=== PATIENT | male | born 1930 | race Hispanic/Latino ===

== ENCOUNTER 2016-08-09 14:51 | Emergency (ER) | payer MEDICARE ==
[~2016-08-09] VITALS: Ht 180.3 cm; Wt 81.6 kg
[2016-08-09] MEDS ORDERED: LEVO10VL IM (15:22)
[2016-08-09] MEDS ORDERED: SINE25TA6 PO (15:22)
[2016-08-09] MEDS ORDERED: METO-209 PO (15:22)
[2016-08-09] MEDS ORDERED: PROBCAP18 PO (15:22)
[2016-08-09] MEDS ORDERED: OMEG12002 PO (15:22)
[2016-08-09] MEDS ORDERED: NAPR500T PO (15:22)
[2016-08-09] MEDS ORDERED: ALLO15TA GT (15:22)
[2016-08-09] MEDS ORDERED: ZANTTAB PO (15:22)
[2016-08-09] MEDS ORDERED: DOXA1TAB71 PO (15:22)
[2016-08-09] MEDS ORDERED: BISA10SU2 PR (15:22)
[2016-08-09] MEDS ORDERED: FLOM5CAP PO (15:22)
[2016-08-09] MEDS ORDERED: MIRA1.5T4 PO (15:22)
[2016-08-09] MEDS ORDERED: EYESOL4 OP (15:22)
[2016-08-09] MEDS ORDERED: LISINOPRIL 5 MG TAB PO ONE (17:00)
[2016-08-09] MEDS ORDERED: LISINOPRIL 10 MG TAB PO ONE (17:00)
[2016-08-09 17:30] LABS: BASO % 0.4 % (0.0-1.0); EOS # 0.2 K/mm3 (0.0-0.50); EOS % 3.1 % (0.0-3.0); LARGE UNSTAINED CELL # 0.1 K/mm3 (0.0-0.4); LARGE UNSTAINED CELL % 1.5 % (0.0-4.0); LYMPH # 1.6 K/mm3 (1.5-4.5); LYMPH % 23.8 % (24.0-44.0); MEAN CORPUSCULAR HEMOGLOBIN 31.8 pg (27.0-33.0); MEAN CORPUSCULAR HGB CONC 33.7 g/dl (32.0-36.5); MEAN CORPUSCULAR VOLUME 94.4 fl (80.0-96.0); MONO # 0.3 K/mm3 (0.0-0.8); MONO % 3.9 % (0.0-5.0); NEUTROPHILS # 4.6 K/mm3 (1.8-7.7); NEUTROPHILS % 67.3 % (36.0-66.0); PLATELET COUNT, AUTOMATED 130 k/mm3 (150-450); RED CELL DISTRIBUTION WIDTH 14.8 % (11.5-14.5); WHITE BLOOD COUNT 6.8 K/mm3 (4.0-10.0)
[2016-08-09] MEDS ORDERED: INDAPAMIDE 1.25MG TABLET PO ONE (18:00)
[2016-08-09 18:04] LABS: ANION GAP 6 MEQ/L (8-16); BLOOD UREA NITROGEN 23 MG/DL (7-18); CALCIUM LEVEL 8.5 MG/DL (8.8-10.2); CARBON DIOXIDE LEVEL 27 MEQ/L (21-32); CHLORIDE LEVEL 110 MEQ/L (98-107); GLUCOSE, FASTING 95 MG/DL (83-110); SODIUM LEVEL 143 MEQ/L (136-145)
[2016-08-09 21:02] VITALS: BP 172/80
--- NOTE | 2016-08-10 06:18 | ECGEPIP ---
Stationary ECG Study [facility] - ED Test Date: 2016-08-09 Pat Name: DANETTE HANNAH Department: Room: - Gender: M Cardiovascular Invasive Specialist: ed : 1930 Requested By: Juan J Acevedo Order Number: [id number] Reading MD: Juan J Ng Measurements Intervals Swiss Rate: 59 P: 49 CO: 164 QRS: 30 QRSD: 84 T: 34 QT: 400 QTc: 397 Interpretive Statements SINUS BRADYCARDIA Electronically Signed On 08-10-2016 6:18:12 EDT by Juan J Ng
--- NOTE | 2016-08-10 07:10 | REP ---
CHEST, ONE VIEW: HISTORY: Chest pain. COMPARISON: 02/28/2015. The lungs are clear. The heart is normal in size. The pulmonary vasculature is normal in appearance. IMPRESSION: No acute disease. Signed by Zach Hansen MD 08/10/2016 08:26 A
== END 2016-08-09 21:04 | disposition home or self-care (01) ==
LOC: M ED 16:34
DX: I10 Essential (primary) hypertension (principal); R42 Dizziness and giddiness; G20 Parkinson's disease; E07.9 Disorder of thyroid, unspecified; Z79.899 Other long term (current) drug therapy; Z88.8 Allergy status to other drugs, medicaments and biological substances

== ENCOUNTER 2017-08-12 12:07 | Inpatient (IN) | payer MEDICARE ==
[2017-08-12 14:52] LABS: BASO % 0.1 % (0.0-1.0); EOS % 0.1 % (0.0-3.0); HEMATOCRIT 47.7 % (42.0-52.0); HEMOGLOBIN 15.9 g/dl (13.5-17.5); IMMATURE GRANULOCYTE % 0.8 % (0-3.0); LYMPH # 1.3 10^3/uL (1.5-4.5); LYMPH % 9.1 % (24.0-44.0); MEAN CORPUSCULAR HEMOGLOBIN 30.7 pg (27.0-33.0); MEAN CORPUSCULAR HGB CONC 33.3 g/dl (32.0-36.5); MEAN CORPUSCULAR VOLUME 92.1 fl (80.0-96.0); MONO % 6.8 % (0.0-5.0); NEUTROPHILS # 11.8 10^3/uL (1.8-7.7); NEUTROPHILS % 83.1 % (36.0-66.0); PLATELET COUNT, AUTOMATED 143 10^3/uL (150-450); RED BLOOD COUNT 5.18 10^6/uL (4.30-6.10); RED CELL DISTRIBUTION WIDTH 14.5 % (11.5-14.5); WHITE BLOOD COUNT 14.2 10^3/uL (4.0-10.0)
[2017-08-12 15:04] LABS: PROTHROMBIN TIME 14.4 SECONDS (12.4-14.5)
[2017-08-12] MEDS: ONDANSETRON 4MG/2ML VIAL (J2405) IV (15:08)
[2017-08-12] MEDS: NS 1,000 ML IV ×3 (15:08→23:56)
[2017-08-12] MEDS: PANTOPRAZOLE 40MG INJ (PROTONIX) (C9113) IV (15:08)
[2017-08-12 15:14] LABS: ALBUMIN 3.1 GM/DL (3.2-5.2); ALBUMIN/GLOBULIN RATIO 0.67 (1.00-1.93); ALKALINE PHOSPHATASE 113 U/L (45-117); ALT/SGPT 26 U/L (12-78); ANION GAP 6 MEQ/L (8-16); AST/SGOT 28 U/L (7-37); BILIRUBIN,DIRECT 0.4 MG/DL (0.0-0.2); BILIRUBIN,TOTAL 1.5 MG/DL (0.2-1.0); BLOOD UREA NITROGEN 36 MG/DL (7-18); CALCIUM LEVEL 9.1 MG/DL (8.8-10.2); CARBON DIOXIDE LEVEL 29 MEQ/L (21-32); CHLORIDE LEVEL 104 MEQ/L (98-107); CREATININE FOR GFR 1.78 MG/DL (0.70-1.30); GLOMERULAR FILTRATION RATE 38.8 (>35); GLUCOSE, FASTING 112 MG/DL (70-100); LIPASE 192 U/L (73-393); POTASSIUM SERUM 4.4 MEQ/L (3.5-5.1); SODIUM LEVEL 139 MEQ/L (136-145); TOTAL PROTEIN 7.7 GM/DL (6.4-8.2)
[2017-08-12] MEDS: cefTRIAXone SOD 1 GM in D5W MINI-BAG PLUS 50 ML IV (16:40)
[2017-08-12] MEDS ORDERED: MORPHINE 4 MG/ML 1ML VIAL/SYRINGE (J2270) IV (17:15)
[2017-08-12] MEDS ORDERED: ONDANSETRON 4MG/2ML VIAL (J2405) IV (17:15)
[2017-08-12 17:53] LABS: LACTIC ACID SEPSIS PROTOCOL 1.9 MMOL/L (0.4-2.0)
[2017-08-12] MEDS: AZITHROMYCIN INJ 500 MG, VIAL MATE ADAPTER 1 EACH in D5W 250 ML IV (18:00)
[2017-08-12] MEDS ORDERED: PIPERACILLIN/TAZOBACTAM SOD 2.25 GM in D5W MINI-BAG PLUS 50 ML IV (18:00)
[2017-08-12 18:26] LABS: CK-MB VALUE MASS 1.1 NG/ML (<3.6); CPK CREATINE PHOSPHOKINASE 58 U/L (39-308); FREE THYROXINE INDEX 2.7 % (1.4-3.8); MB/CK RELATIVE INDEX 1.89 (< OR =4); T UPTAKE 37 % (33-40); THYROXINE (T4) 7.4 UG/DL (4.5-12.0); TROPONIN I < 0.02 NG/ML (< 0.10)
[2017-08-12] MEDS: PIPERACILLIN/TAZOBACTAM SOD 2.25 GM in D5W MINI-BAG PLUS 50 ML IV (19:00)
[2017-08-12] MEDS: LACTOBACILLUS ACIDOPHILUS CAP (BACID) PO (21:07)
[2017-08-12] MEDS: SENOKOT S TAB PO (21:08)
[2017-08-12] MEDS: MIRALAX *UNIT DOSE* 17GM PACKET PO (21:08)
[2017-08-12] MEDS: HEPARIN SOD (PORCINE) 5000 UNITS/ML VIAL SC (21:08)
[2017-08-12] MEDS: FAMOTIDINE 20 MG TAB PO (21:08)
[2017-08-12] MEDS: METOPROLOL SUCC (TopROL XL) 100MG *XL* TAB PO (21:46)
[2017-08-12 22:59] LABS: KETONE, URINE AUTO RFX NEGATIVE (NEGATIVE); LEUKOCYTE ESTERASE UR AUTO RFX NEGATIVE (NEGATIVE); NITRITE, URINE AUTO RFX NEGATIVE (NEGATIVE); RBC, URINE AUTO RFX 4 /HPF (0-3); SPECIFIC GRAVITY UR AUTO RFX 1.019 (1.002-1.035); SQUAM EPITHELIAL CELL UR AURFX 0 /HPF (0-6); WBC, URINE AUTO RFX 2 /HPF (0-3)
[2017-08-12 23:36] LABS: CHLORIDE,RANDOM URINE 44 MEQ/L; POTASSIUM RANDOM URINE 53.5 MEQ/L; SODIUM,RANDOM URINE 50 MEQ/L; TOTAL PROTEIN,RANDOM URINE 117.2 MG/DL (0.0-12.0)
[2017-08-13 00:33] LABS: OSMOLALITY URINE 649 MOSM/KG (500-800)
[2017-08-13] MEDS: PIPERACILLIN/TAZOBACTAM SOD 2.25 GM in D5W MINI-BAG PLUS 50 ML IV (03:58)
[2017-08-13 05:25] LABS: HEMATOCRIT 41.3 % (42.0-52.0); MEAN CORPUSCULAR HEMOGLOBIN 30.7 pg (27.0-33.0); MEAN CORPUSCULAR HGB CONC 33.4 g/dl (32.0-36.5); MEAN CORPUSCULAR VOLUME 91.8 fl (80.0-96.0); PLATELET COUNT, AUTOMATED 118 10^3/uL (150-450); RED CELL DISTRIBUTION WIDTH 14.6 % (11.5-14.5); WHITE BLOOD COUNT 10.3 10^3/uL (4.0-10.0)
[2017-08-13 05:32] LABS: HEMOGLOBIN 13.8 g/dl (13.5-17.5)
[2017-08-13 05:43] LABS: ALBUMIN 2.4 GM/DL (3.2-5.2); ALBUMIN/GLOBULIN RATIO 0.65 (1.00-1.93); ALKALINE PHOSPHATASE 102 U/L (45-117); ALT/SGPT 24 U/L (12-78); ANION GAP 8 MEQ/L (8-16); AST/SGOT 25 U/L (7-37); BILIRUBIN,TOTAL 1.1 MG/DL (0.2-1.0); BLOOD UREA NITROGEN 34 MG/DL (7-18); CALCIUM LEVEL 8.2 MG/DL (8.8-10.2); CARBON DIOXIDE LEVEL 23 MEQ/L (21-32); CHLORIDE LEVEL 109 MEQ/L (98-107); CK-MB VALUE MASS 1.1 NG/ML (<3.6); CPK CREATINE PHOSPHOKINASE 35 U/L (39-308); GLOMERULAR FILTRATION RATE 47.2 (>35); GLUCOSE, FASTING 109 MG/DL (70-100); MAGNESIUM LEVEL 1.9 MG/DL (1.8-2.4); MB/CK RELATIVE INDEX 3.14 (< OR =4); SODIUM LEVEL 140 MEQ/L (136-145); TOTAL PROTEIN 6.1 GM/DL (6.4-8.2); TROPONIN I < 0.02 NG/ML (< 0.10)
[2017-08-13] MEDS: LEVOTHYROXINE 100MCG TABLET (0.1MG) PO (05:59)
[2017-08-13] MEDS: PANTOPRAZOLE 40MG INJ (PROTONIX) (C9113) IV (08:56)
[2017-08-13] MEDS: MIRALAX *UNIT DOSE* 17GM PACKET PO (08:56)
[2017-08-13] MEDS: LACTOBACILLUS ACIDOPHILUS CAP (BACID) PO (08:56)
[2017-08-13] MEDS: HEPARIN SOD (PORCINE) 5000 UNITS/ML VIAL SC (08:56)
[2017-08-13] MEDS: ALLOPURINOL 300 MG TAB PO (08:57)
[2017-08-13] MEDS: DOXAZOSIN MESYLATE 1 MG TAB PO (08:57)
[2017-08-13] MEDS: TAMSULOSIN 0.4 MG CAP PO (08:57)
[2017-08-13] MEDS: MULTIVITAMINS/MINERALS THERAP 1 TAB PO (08:57)
[2017-08-13] MEDS: SENOKOT S TAB PO (08:57)
[2017-08-13] MEDS ORDERED: SLF 3 ML SYR IV ×2 (11:00→14:00)
[2017-08-13] MEDS ORDERED: BISACODYL 10 MG SUPP PR (13:00)
== END 2017-08-13 16:13 | disposition home or self-care (01) | DRG 392 ==
LOC: M ED 12:07 → M ED INP 17:04 → M PCU 18:38
DX: A08.4 Viral intestinal infection, unspecified (principal); E46 Unspecified protein-calorie malnutrition; K80.00 Calculus of gallbladder with acute cholecystitis without obstruction; J98.11 Atelectasis; K52.9 Noninfective gastroenteritis and colitis, unspecified; K59.00 Constipation, unspecified; I12.9 Hypertensive chronic kidney disease with stage 1 through stage 4 chronic kidney disease, or unspecified chronic kidney disease; G20 Parkinson's disease; E03.9 Hypothyroidism, unspecified; D72.829 Elevated white blood cell count, unspecified; E86.0 Dehydration; N18.9 Chronic kidney disease, unspecified; N40.0 Benign prostatic hyperplasia without lower urinary tract symptoms; Z79.899 Other long term (current) drug therapy

== ENCOUNTER 2020-03-30 12:16 | Inpatient (IN) | payer MEDICARE ==
[~2020-03-30] VITALS: Ht 177.8 cm; Wt 82.2 kg
[2020-03-30] MEDS: METOPROLOL SUCC (TopROL XL) 100MG *XL* TAB PO SCH (09:00)
[~2020-03-30 12:16] MED LIST: ALLO300T2 PO; BISA10SU20 PR; DOXA2TAB3 PO; DULC5TAB PO; EYESOL4 OP; FLOM0.4C39 PO; LASI20TA3 PO; LEVO100T54 PO; LEVO10VL IM; LISI-542 PO; METO1TAB33 PO; MIRA1.5T PO; MIRA3350 PO; MIRA33504 PO; NAPR-837 PO; OMEG12002 PO; PROBCAP18 PO; SENN1TAB10 PO; SINE25TA6 PO; VITMTA PO; ZANT150T40 PO; ZYLO300T6 PO
--- NOTE | 2020-03-30 13:15 | REP ---
INDICATION: pain Nontraumatic hip pain. COMPARISON: None. TECHNIQUE: Frontal view of the pelvis with neutral and frog lateral views of the right hip. FINDINGS: Age-related osteopenia and generalized degenerative changes are appreciated. No evidence for acute fracture or dislocation. IMPRESSION: Osteopenia and age-related degenerative changes. No obvious acute fracture or dislocation. <Electronically signed by Dev Carlos > 03/30/20 [id number]
--- NOTE | 2020-03-30 13:40 | REP ---
INDICATION: pain. COMPARISON: None. TECHNIQUE: Axial noncontrast images through the right hip with coronal and sagittal reformations. FINDINGS: Extensive osteopenia and moderate arthritic degenerative changes are appreciated. There is an acute nondisplaced fracture of the inferior pubic ramus with a somewhat central possibly blastic soft tissue component raising the possibility of pathologic fracture. Correlation with underlying history of malignancy may be warranted. No further acute fracture to the visualized osseous structures noted. Surrounding soft tissues and musculature appear relatively age-appropriate. No hematoma or soft tissue injury noted. IMPRESSION: 1. Nondisplaced fracture of the inferior pubic ramus having a somewhat central soft tissue component raising the possibility of pathologic fracture and correlation with underlying history of malignancy may be warranted. <Electronically signed by Dev Carlos > 03/30/20 [id number]
[2020-03-30] MEDS ORDERED: PERCOCET 5MG/325MG TAB PO ONE (14:15)
[2020-03-30] MEDS ORDERED: RA S8.6T3 PO (14:44)
[2020-03-30] MEDS ORDERED: PEPC1TAB5 PO (14:44)
[2020-03-30 15:00] LABS: HEMATOCRIT 45.3 % (42.0-52.0); HEMOGLOBIN 15.1 g/dl (13.5-17.5); MEAN CORPUSCULAR HEMOGLOBIN 31.1 pg (27.0-33.0); MEAN CORPUSCULAR HGB CONC 33.3 g/dl (32.0-36.5); MEAN CORPUSCULAR VOLUME 93.4 fl (80.0-96.0); PLATELET COUNT, AUTOMATED 179 10^3/uL (150-450); RED BLOOD COUNT 4.85 10^6/uL (4.30-6.10); WHITE BLOOD COUNT 8.5 10^3/uL (4.0-10.0)
[2020-03-30 15:22] LABS: ALBUMIN 3.9 GM/DL (3.2-5.2); BILIRUBIN,TOTAL 0.8 MG/DL (0.2-1.0); CALCIUM LEVEL 9.9 MG/DL (8.8-10.2); CREATININE FOR GFR 1.9 MG/DL (0.70-1.30); GLOMERULAR FILTRATION RATE 35.7 (>35); POTASSIUM SERUM 4.7 MEQ/L (3.5-5.1); TOTAL PROTEIN 7.3 GM/DL (6.4-8.2)
--- NOTE | 2020-03-30 16:53 | REP ---
INDICATION: BRITTNY COMPARISON: None TECHNIQUE: Real time correa scale ultrasound examination using curved array transducer. FINDINGS: Kidneys demonstrate cortical thinning with increased central sinus fat and increased parenchymal echotexture suggesting chronic age-related renal disease. No hydronephrosis. Right kidney measures 8.7 x 4.0 x 4.4 cm. Left kidney measures 9.5 x 4.7 x 4.6 cm and includes 2.1 cm midpole cyst. Bladder is unremarkable. Incidental cholelithiasis. IMPRESSION: Evidence for chronic medical renal disease. 2.1 cm simple left renal cyst. Cholelithiasis noted. <Electronically signed by Dev Carlos > 03/30/20 [id number]
--- NOTE | 2020-03-30 17:12 | HPEPDOC ---
General Date of Admission Mar 30, 2020 at 15:31 Date of Service: Mar 30, 2020 Attending Physician: DEMETRIS ROGERS DO Chief Complaint The patient is a 89-year-old male admitted with a reason for visit of Closed Fracture Of Inferior Pubic Ramus,Inadequate. Source: Patient History of Present Illness Mr. García is a 89 year old male with gout, hypothyroidism, and CKD who is here for right hip pain and found to have a nondisplaced fracture of the infer ior pubic ramus. About 3 days ago, he started to have right pelvis pain. He is unsure what caused the pain. Denies trauma or falls. Pain was worse with activity, better with rest. he took Tylenol, but it did not help. he used two canes to help himself ambulate because he does not like the walker. Pain was not improving and he came to the ED. Imaging demonstrated a nondisplaced fracture of the inferior pubic ramus and requested admission for pain control and physical therapy. The last time he had a fracture was a few years ago when he fell and fractured his right 5 digit finger. Otherwise, he is not up-to-date on cancer screenings. He does not want a colonoscopy because he had a family member who had a perforation from a colonoscopy. He has never smoked before. I spoke to him about cancer screening such as PSA and fecal occult, but he had declined. We spoke about DNR/DNI status and I brought the MOLST form, but he did not want to fill it out. He says that due to philosophical and yarsani beliefs, he wants to continue fighting to the very end. He agrees to full code at this time. Otherwise, denies history of cancer in family or in himself. Pain is only there when he tries to walk. Denies fever, chest pain, dyspnea, cough, abdominal pain, or dysuria. He does have constipation. Home Medications Scheduled Allopurinol (Zyloprim) 300 Mg Tab, 300 MG PO DAILY, (Reported) Doxazosin Mesylate (Doxazosin) 2 Mg Tab, 2 MG PO DAILY, (Reported) Famotidine (Pepcid) 20 Mg Tablet, 20 MG PO BID, (Reported) Levothyroxine Sodium (Levoxyl) 100 Mcg Tab, 100 MCG PO DAILY, (Reported) Lisinopril (Lisinopril) 5 Mg Tab, 5 MG PO DAILY, (Reported) Metoprolol Succinate (Metoprolol Succinate) 100 Mg Tab, 100 MG PO DAILY, (Reported) Multivitamins (Thera M Plus Tablet) 1 Tab Tab, 1 TAB PO DAILY, (Reported) Sennosides (Senna Lax) 8.6 Mg Tablet, 8.6 MG PO QHS, (Reported) Tamsulosin HCl (Flomax) 0.4 Mg Cap, 0.4 MG PO QHS, (Reported) Scheduled PRN Furosemide (Lasix) 20 Mg Tab, 20 MG PO DAILY PRN for EDEMA, (Reported) Polyethylene Glycol 3350 (Miralax) 1 Pow Pow, 17 GM PO DAILY PRN for CONSTIPATION, (Reported) Allergies Coded Allergies: amlodipine (Verified Adverse Reaction, Mild, DIZZY, 03/30/20) Past Medical History Medical History 1. Hypertension 2. Parkinsonism 3. Hypothyroidism 4. CKD 5. BPH Surgical History 1. Appendectomy 2. Circumcision Family History Father: at 55 from cardiac causes Mother: at 77 from cardiac causes Social History * Smoker: Denies Alcohol: Denies Drugs: denies A-FIB/CHADSVASC A-FIB History Current/History of A-Fib/PAF?: No Review of Systems Constitutional: Denies: Chills, Fever Eyes: Denies: Vision change ENT: Denies: Sore Throat Skin: Denies: Rash Pulmonary: Denies: Dyspnea, Cough Cardiovascular: Denies: Chest Pain Gastrointestinal: Reports: Constipation; Denies: Abdominal Pain Genitourinary: Denies: Dysuria Hematologic: Denies: Bruising Musculoskeletal: Reports: Joint Pain (Located in right hip) Physical Examination General Exam: Positive: Alert, Cooperative, No Acute Distress Eye Exam: Positive: EOMI; Negative: Sclera icteric ENT Exam: Positive: Atraumatic, Tongue Midline Neck Exam: Positive: Supple Chest Exam: Positive: Clear to auscultation; Negative: Rales, Rhonchi, Wheezing Heart Exam: Positive: Rate Normal, Regular Rhythm Abdomen Exam: Positive: Normal bowel sounds, Soft; Negative: Tenderness Extremity Exam: Negative: Edema Neuro Exam: Positive: Normal Speech, Cranial Nerves 3-12 NL Psych Exam: Positive: Mental status NL, Mood NL Vital Signs Vital Signs Date Time Temp Pulse Resp B/P (MAP) Pulse Ox O2 Delivery O2 Flow Rate FiO2 03/30/20 16:04 57 97 03/30/20 16:03 137/73 (94) 03/30/20 14:48 16 Room Air 03/30/20 12:25 97.6 Laboratory Data Labs 24H Laboratory Tests 2 03/30/20 14:45: Nucleated Red Blood Cells % (auto) 0.0, Anion Gap 6L, Glomerular Filtration Rate 35.7, Calcium Level 9.9, Total Bilirubin 0.8, Aspartate Amino Transf (AST/SGOT) 14, Alanine Aminotransferase (ALT/SGPT) 21, Alkaline Phosphatase 130H, Total Protein 7.3, Albumin 3.9, Albumin/Globulin Ratio 1.1, Coronavirus (COVID- 19)(PCR) NEGATIVE CBC/BMP Laboratory Tests 03/30/20 14:45 Assessment/Plan Mr. García is a 89 year old male with gout, hypothyroidism, and CKD who is here for right hip pain and found to have a nondisplaced fracture of the inferior pubic ramus. He has declined cancer screening, but he is okay for a bone scan. Otherwise, we will work on pain control with scheduled Tylenol and PRN Ultram. He does have some BRITTNY. Will hold lasix and give fluids Plan / VTE VTE Prophylaxis Ordered?: Yes Plan Plan 1. Right inferior pubic ramus fracture -Unknown etiology, possible malignancy -Patient noncompliant with cancer screenings, declines cancer screening -Ok for bone scan -Pain control with scheduled Tylenol and PRN Ultram -Physical therapy for ambulation 2. BRITTNY on CKD -Baseline creatinine around 1.7 -On admission creatinine 1.9 -IVF with LR, hold Lasix 3. Gout -No acute flares at this time -Continue Allopurinol 4. Hypertension -BP controlled -Continue with Toprol XL and Lisinopril 5. BPH -Continue Tamsulosin 6. Constipation -Continue Senna and PRN Miralax 7. GERD -Continue Famotidine 8. Hypothyroidism -Continue levothyroxine 9. DVT ppx -Heparin subq DEMETRIS ROGERS DO Mar 30, 2020 17:12
[2020-03-30 18:30] VITALS: BP 146/69
[2020-03-30] MEDS: LR 1,000 ML IV SCH (18:40)
[2020-03-30] MEDS: ACETAMINOPHEN 500 MG TAB PO SCH ×2 (18:41→21:34)
[2020-03-30] MEDS: lisinopriL 5 MG TAB PO SCH (18:41)
[2020-03-30] MEDS: allopurinoL 300 MG TAB PO SCH (18:42)
[2020-03-30 20:00] VITALS: BP 121/64
[2020-03-30] MEDS: SENNA 8.6 MG TAB (SENOKOT) PO SCH (21:33)
[2020-03-30] MEDS: FAMOTIDINE 20 MG TAB PO SCH (21:33)
[2020-03-30] MEDS: TAMSULOSIN 0.4 MG CAP PO SCH (21:33)
[2020-03-30] MEDS: HEPARIN SOD (PORCINE) 5000UNITS/ML 1ML VIAL/SYRINGE SC SCH (21:35)
[2020-03-30 22:11] LABS: APPEARANCE, URINE CLEAR (CLEAR); BACTERIA, URINE AUTO NEGATIVE (NEGATIVE); BILIRUBIN, URINE AUTO NEGATIVE (NEGATIVE); BLOOD, URINE BLOOD NEGATIVE (NEGATIVE); COLOR, URINE YELLOW (YELLOW); GLUCOSE, URINE (UA) AUTO NEGATIVE (NEGATIVE); KETONE, URINE AUTO NEGATIVE (NEGATIVE); LEUKOCYTE ESTERASE, URINE AUTO NEGATIVE (NEGATIVE); MUCUS, URINE SMALL (NEGATIVE); NITRITE, URINE AUTO NEGATIVE (NEGATIVE); PROTEIN, URINE AUTO NEGATIVE (NEGATIVE); RBC, URINE AUTO 1 /HPF (0-3); SPECIFIC GRAVITY URINE AUTO 1.026 (1.002-1.035); SQUAMOUS EPITHELIAL CELL UR AU 0 /HPF (0-6); UROBILINOGEN, URINE AUTO 0.2 mg/dL (0.0-2.0); WBC, URINE AUTO 1 /HPF (0-3)
[2020-03-31] MEDS: LR 1,000 ML IV SCH ×2 (04:51→16:46)
[2020-03-31 05:54] VITALS: BP 118/82
[2020-03-31] MEDS: LEVOTHYROXINE 100MCG TABLET (0.1MG) PO SCH (05:58)
[2020-03-31] MEDS: traMADol 50 MG TAB PO PRN ×2 (05:59→15:52)
[2020-03-31] MEDS: allopurinoL 300 MG TAB PO SCH (08:03)
[2020-03-31] MEDS: FAMOTIDINE 20 MG TAB PO SCH ×2 (08:03→21:18)
[2020-03-31] MEDS: ACETAMINOPHEN 500 MG TAB PO SCH ×3 (08:03→21:18)
[2020-03-31] MEDS: lisinopriL 5 MG TAB PO SCH (08:03)
[2020-03-31] MEDS: METOPROLOL SUCC (TopROL XL) 100MG *XL* TAB PO SCH (08:03)
[2020-03-31] MEDS: MULTIVITAMINS/MINERALS THERAP 1 TAB PO SCH (08:03)
[2020-03-31] MEDS: HEPARIN SOD (PORCINE) 5000UNITS/ML 1ML VIAL/SYRINGE SC SCH ×2 (08:03→21:19)
[2020-03-31] MEDS ORDERED: OLANZapine INTRAMUSCULAR 10MG VIAL IM STA (08:31)
[2020-03-31] MEDS: OLANZapine 2.5MG TABLET PO SCH ×2 (09:00→21:20)
[2020-03-31 09:03] LABS: HEMATOCRIT 44.6 % (42.0-52.0); HEMOGLOBIN 14.9 g/dl (13.5-17.5); MEAN CORPUSCULAR HEMOGLOBIN 31.1 pg (27.0-33.0); MEAN CORPUSCULAR HGB CONC 33.4 g/dl (32.0-36.5); MEAN CORPUSCULAR VOLUME 93.1 fl (80.0-96.0); PLATELET COUNT, AUTOMATED 190 10^3/uL (150-450); RED BLOOD COUNT 4.79 10^6/uL (4.30-6.10); WHITE BLOOD COUNT 8.3 10^3/uL (4.0-10.0)
[2020-03-31 09:50] LABS: CALCIUM LEVEL 9.7 MG/DL (8.8-10.2); CREATININE FOR GFR 2.19 MG/DL (0.70-1.30); GLOMERULAR FILTRATION RATE 30.3 (>35); POTASSIUM SERUM 4.4 MEQ/L (3.5-5.1)
[2020-03-31 14:00] VITALS: BP 102/49
--- NOTE | 2020-03-31 14:25 | IPNPDOC ---
Subjective Date Seen The patient was seen on 03/31/20. Subjective Chief Complaint/HPI Mr. García is a 89 year old male with gout, hypothyroidism, and CKD who is here for right hip pain and found to have a nondisplaced fracture of the inferior pubic ramus. This morning, he was confused. He was asking who I was and why I came into his house. He wanted to take my number and he would call me. He was very agitated and refused physical exam or ROS. Physical therapy tried to see him, but he refused physical therapy as well. His child care coordinator arrived here and he has calmed down. Patient tend to be more awake at night and asleep in the day time. Objective Physical Examination Neuro Exam: Positive: Normal Speech Psych Exam: Positive: Anxiety; Negative: Mental status NL Other physical findings Physical exam refused today Assessment /Plan Assessment Mr. García is a 89 year old male with gout, hypothyroidism, and CKD who is here for right hip pain and found to have a nondisplaced fracture of the inferior pubic ramus. He has declined cancer screening, but he is okay for a bone scan. Otherwise, we will work on pain control with scheduled Tylenol and PRN Ultram. He does have some BRITTNY. Will hold lasix and give fluids. Otherwise, he does have Parkinson's and he may be sun downing as he is normally awake at night and asleep in the day time. License Clerk here to calm patient down. Will start patient on Olanzapine Plan/VTE VTE Prophylaxis Ordered?: Yes Plan 1. Right inferior pubic ramus fracture -Unknown etiology, possible malignancy -Patient noncompliant with cancer screenings, declines cancer screening -Ok for bone scan -Pain control with scheduled Tylenol and PRN Ultram -Physical therapy for ambulation 2. BRITTNY on CKD -Baseline creatinine around 1.7 -On admission creatinine 1.9 -IVF with LR, hold Lasix 3. Gout -No acute flares at this time -Continue Allopurinol 4. Hypertension -BP controlled -Continue with Toprol XL and Lisinopril 5. BPH -Continue Tamsulosin 6. Constipation -Continue Senna and PRN Miralax 7. GERD -Continue Famotidine 8. 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 DVT ppx -Heparin subq VS, I&O, 24H, [place] Vital Signs/I&O Vital Signs Date Time Temp Pulse Resp B/P (MAP) Pulse Ox O2 Delivery O2 Flow Rate FiO2 03/31/20 06:29 18 03/31/20 05:54 96.9 62 118/82 (94) 96 Room Air I&O- Last 24 Hours up to 6 AM 03/31/20 06:00 Intake Total 1500 ml Output Total 200 ml Balance 1300 ml Laboratory Data 24H LABS Laboratory Tests 2 03/30/20 14:45: Nucleated Red Blood Cells % (auto) 0.0, Anion Gap 6L, Glomerular Filtration Rate 35.7, Calcium Level 9.9, Total Bilirubin 0.8, Aspartate Amino Transf (AST/SGOT) 14, Alanine Aminotransferase (ALT/SGPT) 21, Alkaline Phosphatase 130H, Total Protein 7.3, Albumin 3.9, Albumin/Globulin Ratio 1.1, Coronavirus (COVID- 19)(PCR) NEGATIVE 03/30/20 21:53: Urine Color YELLOW, Urine Appearance CLEAR, Urine pH 5.0, Urine Specific [place] 1.026, Urine Protein NEGATIVE, Urine Glucose (Auto)(UA) NEGATIVE, Urine Ketones (Auto) NEGATIVE, Urine Blood NEGATIVE, Urine Nitrite NEGATIVE, Urine Bilirubin NEGATIVE, Urine Urobilinogen 0.2, Urine Leukocyte Esterase (Auto) NEGATIVE, Urine WBC (Auto) 1, Urine RBC (Auto) 1, Urine Hyaline Casts (Auto) 3, Urine Bacteria (Auto) NEGATIVE, Urine Squamous Epithelial Cells 0, Urine Mucus (Auto) SMALL, Urine Sperm (Auto) SMALLH 03/31/20 08:36: Nucleated Red Blood Cells % (auto) 0.0, Anion Gap 10, Glomerular Filtration Rate 30.3L, Calcium Level 9.7 CBC/BMP Laboratory Tests 03/30/20 14:45 03/31/20 08:36 DEMETRIS ROGERS DO Mar 31, 2020 14:25
[2020-03-31] MEDS: TAMSULOSIN 0.4 MG CAP PO SCH (21:18)
[2020-03-31] MEDS: SENNA 8.6 MG TAB (SENOKOT) PO SCH (21:18)
[2020-03-31 22:00] VITALS: BP 118/55
[2020-04-01] MEDS: LEVOTHYROXINE 100MCG TABLET (0.1MG) PO SCH (05:45)
[2020-04-01] MEDS: LR 1,000 ML IV SCH ×2 (05:45→15:28)
[2020-04-01 06:00] VITALS: BP 120/54
[2020-04-01 06:32] LABS: HEMATOCRIT 41.1 % (42.0-52.0); HEMOGLOBIN 13.3 g/dl (13.5-17.5); MEAN CORPUSCULAR HEMOGLOBIN 30.9 pg (27.0-33.0); MEAN CORPUSCULAR HGB CONC 32.4 g/dl (32.0-36.5); MEAN CORPUSCULAR VOLUME 95.4 fl (80.0-96.0); PLATELET COUNT, AUTOMATED 141 10^3/uL (150-450); RED BLOOD COUNT 4.31 10^6/uL (4.30-6.10)
[2020-04-01 06:49] LABS: CALCIUM LEVEL 9.3 MG/DL (8.8-10.2); CREATININE FOR GFR 2.53 MG/DL (0.70-1.30); GLOMERULAR FILTRATION RATE 25.7 (>35); POTASSIUM SERUM 4.1 MEQ/L (3.5-5.1)
[2020-04-01] MEDS: FAMOTIDINE 20 MG TAB PO SCH ×2 (08:30→20:59)
[2020-04-01] MEDS: MIRALAX *UNIT DOSE* 17GM PACKET PO PRN (08:30)
[2020-04-01] MEDS: MULTIVITAMINS/MINERALS THERAP 1 TAB PO SCH (08:30)
[2020-04-01] MEDS: allopurinoL 300 MG TAB PO SCH (08:30)
[2020-04-01] MEDS: ACETAMINOPHEN 500 MG TAB PO SCH ×3 (08:31→20:59)
[2020-04-01] MEDS: HEPARIN SOD (PORCINE) 5000UNITS/ML 1ML VIAL/SYRINGE SC SCH ×2 (08:31→20:58)
[2020-04-01] MEDS: OLANZapine 2.5MG TABLET PO SCH ×2 (08:31→20:58)
[2020-04-01] MEDS: METOPROLOL SUCC (TopROL XL) 100MG *XL* TAB PO SCH (08:37)
[2020-04-01 14:00] VITALS: BP 117/65
--- NOTE | 2020-04-01 14:53 | REP ---
INDICATION: Inferior pubic ramus fracture, possible mets/malignancy. COMPARISON: CT 03/30/2020. TECHNIQUE/RADIOTRACER AND DOSE: Following the intravenous administration of 22 mCi technetium 99 M MDP, patient's pelvic area is imaged in multiple projections, in the flow phase, immediate blood pool phase and 2.5 hour delayed phase post injection. FINDINGS: There is focal increased blood flow and blood pooling with a more tense focal uptake in the right inferior pubic ramus at the site of the fracture at that location. A similar focus of increased flow, pooling and delayed activity is seen in the right superior pubic ramus. No other discrete abnormal foci of uptake are seen in the visualized osseous structures of the pelvis. There is mild increased uptake at a disc level in the upper lumbar region compatible with mild degenerative disc change. IMPRESSION: At the site of the fracture of the right inferior pubic ramus there is increased uptake on all 3 phases of this triple phase bone scan, most intense in the delayed phase.There is similar increased uptake focally in the right superior pubic ramus, most consistent with an occult fracture at that location, not visualized on the CT scan. No other abnormal uptake in the osseous structures of the pelvis. <Electronically signed by Aniceto Schneider > 04/01/20 [id number]
[2020-04-01] MEDS: traMADol 50 MG TAB PO PRN (15:27)
--- NOTE | 2020-04-01 16:21 | IPNPDOC ---
Subjective Date Seen The patient was seen on 04/01/20. Subjective Chief Complaint/HPI Mr. García is a 89 year old male with gout, hypothyroidism, and CKD who is here for right hip pain and found to have a nondisplaced fracture of the inferior pubic ramus. This morning, he was pleasant. He remembered seeing me down in the ED. Denies chest pain, dyspnea, or abdominal pain. Spoke with his son. Patient has been living independently alone with health respiratory care instructor. He has Parkinson's disease, but does not want to admit he has Parkinson's disease. He has taken himself off of Sinemet. Son requested neurology consultation with the understanding that most likely will have to be an outpatient visit since it was not urgent. Also to reduce COVID exposure. I spoke with Neurology. He did follow with them, but missed their last appointment. Recommended outpatient follow up. Otherwise, son had said patient had taken a lot of NSAID due to right leg/hip pain. This may have explained his BRITTNY on CKD. Urine output low despite fluid ch allenge and creatine continued to rise. Bladder scan was 80mL. Patient does have incontinence. Nephrology was consulted. Objective Physical Examination General Exam: Positive: Alert, Cooperative, No Acute Distress Eye Exam: Positive: EOMI; Negative: Sclera icteric ENT Exam: Positive: Atraumatic, Tongue Midline Neck Exam: Positive: Supple Chest Exam: Positive: Clear to auscultation; Negative: Rales, Rhonchi, Wheezing Heart Exam: Positive: Rate Normal, Regular Rhythm Abdomen Exam: Positive: Normal bowel sounds, Soft; Negative: Tenderness Extremity Exam: Negative: Edema Neuro Exam: Positive: Normal Speech, Cranial Nerves 3-12 NL Psych Exam: Positive: Anxiety Assessment /Plan Assessment Mr. García is a 89 year old male with gout, hypothyroidism, and CKD who is here for right hip pain and found to have a nondisplaced fracture of the inferior pubic ramus. He has declined cancer screening, but he is okay for a bone scan. Spoke to son as well about patient's refusal for cancer screening and he understands. Otherwise, we will work on pain control with scheduled Tylenol and PRN Ultram. His BRITTNY continues to worsen despite fluid challenge. Poor urine output but patient does have incontinence. Bladder scan demonstrated 80mL. Son tells me that he had take a lot of NSAIDs for the right leg/hip pain which may be the cause of his BRITTNY. Nephrology consulted, recommendations appreciated. Otherwise, he does have Parkinson's and he may be sun downing as he is normally awake at night and asleep in the day time. Loan Collector here to calm patient down. Will start patient on Olanzapine. Patient will need to follow up outpatient with neurology Plan/VTE VTE Prophylaxis Ordered?: Yes Plan 1. Right inferior pubic ramus fracture -Unknown etiology, possible malignancy -Patient noncompliant with cancer screenings, declines cancer screening -Ok for bone scan -Pain control with scheduled Tylenol and PRN Ultram -Physical therapy for ambulation -Will need rehab 2. BRITTNY on CKD -Baseline creatinine around 1.7 -On admission creatinine 1.9 -IVF with LR, hold Lasix and lisinopril 3. Gout -No acute flares at this time -Continue Allopurinol 4. Hypertension -BP controlled -Continue with Toprol XL 5. BPH -Continue Tamsulosin 6. Constipation -Continue Senna and PRN Miralax 7. GERD -Continue Famotidine 8. 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 DVT ppx -Heparin subq Disposition: Once renal function improves, patient will need rehab VS, I&O, 24H, [place] Vital Signs/I&O Vital Signs Date Time Temp Pulse Resp B/P (MAP) Pulse Ox O2 Delivery O2 Flow Rate FiO2 04/01/20 15:27 17 04/01/20 08:37 75 152/80 04/01/20 06:00 97.6 95 Room Air I&O- Last 24 Hours up to 6 AM 04/01/20 06:00 Intake Total 410 ml Output Total 150 ml Balance 260 ml Laboratory Data 24H LABS Laboratory Tests 2 04/01/20 06:01: Nucleated Red Blood Cells % (auto) 0.0, Anion Gap 6L, Glomerular Filtration Rate 25.7L, Calcium Level 9.3, Ammonia < 10 CBC/BMP Laboratory Tests 04/01/20 06:01 DEMETRIS ROGERS DO Apr 01, 2020 16:21
[2020-04-01] MEDS: TAMSULOSIN 0.4 MG CAP PO SCH (20:58)
[2020-04-01] MEDS: SENNA 8.6 MG TAB (SENOKOT) PO SCH (20:59)
[2020-04-01 22:00] VITALS: BP 160/80
[2020-04-02] MEDS ORDERED: MORPHINE 2 MG/ML 1ML VIAL (J2270) As Ordered ONE (02:17)
[2020-04-02] MEDS: MORPHINE 2 MG/ML 1ML VIAL (J2270) IV PRN ×3 (02:34→12:33)
[2020-04-02] MEDS: OLANZapine INTRAMUSCULAR 10MG VIAL IM ONE (03:30)
[2020-04-02] MEDS: LEVOTHYROXINE 100MCG TABLET (0.1MG) PO SCH (05:30)
[2020-04-02 06:00] VITALS: BP 163/88
[2020-04-02] MEDS: LR 1,000 ML IV SCH ×2 (06:45→22:00)
[2020-04-02 07:31] LABS: HEMATOCRIT 42.8 % (42.0-52.0); HEMOGLOBIN 14.2 g/dl (13.5-17.5); MEAN CORPUSCULAR HEMOGLOBIN 30.9 pg (27.0-33.0); MEAN CORPUSCULAR HGB CONC 33.2 g/dl (32.0-36.5); MEAN CORPUSCULAR VOLUME 93.2 fl (80.0-96.0); PLATELET COUNT, AUTOMATED 146 10^3/uL (150-450); RED BLOOD COUNT 4.59 10^6/uL (4.30-6.10); WHITE BLOOD COUNT 7.4 10^3/uL (4.0-10.0)
[2020-04-02 08:16] LABS: CALCIUM LEVEL 9.1 MG/DL (8.8-10.2); GLOMERULAR FILTRATION RATE 33.7 (>35); POTASSIUM SERUM 3.7 MEQ/L (3.5-5.1)
[2020-04-02] MEDS: ACETAMINOPHEN 500 MG TAB PO SCH ×3 (09:04→21:58)
[2020-04-02] MEDS: MULTIVITAMINS/MINERALS THERAP 1 TAB PO SCH (09:04)
[2020-04-02] MEDS: METOPROLOL SUCC (TopROL XL) 100MG *XL* TAB PO SCH (09:07)
[2020-04-02] MEDS: HEPARIN SOD (PORCINE) 5000UNITS/ML 1ML VIAL/SYRINGE SC SCH ×2 (09:07→21:58)
[2020-04-02] MEDS: OLANZapine 2.5MG TABLET PO SCH ×2 (09:07→21:59)
[2020-04-02] MEDS: FAMOTIDINE 20 MG TAB PO SCH ×2 (09:07→21:58)
[2020-04-02] MEDS: allopurinoL 300 MG TAB PO SCH (09:08)
--- NOTE | 2020-04-02 12:37 | IPNPDOC ---
Text Note Date of Service The patient was seen on 04/02/20. NOTE Subjective: -No acute issues overnight -UOP remains very low, nephrology now onboard, continuing hydration -Continuous to be disoriented. Laying in bed with gown off, asking if the door is open so that he can come out of the room. Denies pain at this time. Objective: General: Alert, Cooperative, No Acute Distress Eye: EOMI, anicteric ENT: Atraumatic, very dry MM Neck: Supple Chest: Clear to auscultation bilaterally Heart: Rate Normal, Regular Rhythm, no mrg Abdomen: Normal bowel sounds, soft, NTND Neuro: Normal Speech, Cranial Nerves 3-12 NL Assessment: 89 year old M with gout, hypothyroidism, likely Parkinson's with labile mentation and disturbed sleep wake cycle and CKD who is here for right hip pain and found to have a nondisplaced fracture of the inferior pubic ramus, with oliguric BRITTNY in the setting of recent NSAIDs for the right leg/hip pain, with nephrology now consulted. Plan 1. Right inferior pubic ramus fracture -Etiology remains unclear at this time -Patient noncompliant with cancer screenings, declines cancer screening -Ok for bone scan -Pain control with scheduled Tylenol and PRN Ultram -Physical therapy for ambulation -Will need rehab 2. BRITTNY on CKD i/s/o NSAIDs -Baseline creatinine around 1.7 -On admission creatinine 1.9 and uptrended, now downtrending with hydration -IVF with LR, holding Lasix and lisinopril -Nephrology consulted 3. Gout -No acute flares at this time -Continue Allopurinol 4. Hypertension -BP controlled -Continue with Toprol XL 5. BPH -Continue Tamsulosin 6. Constipation -Continue Senna and PRN Miralax 7. GERD -Continue Famotidine 8. 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 DVT ppx -Heparin subq Disposition: Once renal function improves, patient will need rehab VS,Fishbone, I+O VS, Fishbone, I+O Laboratory Tests 04/02/20 07:06 Vital Signs Date Time Temp Pulse Resp B/P (MAP) Pulse Ox O2 Delivery O2 Flow Rate FiO2 04/02/20 09:07 166/88 04/02/20 06:00 97.9 87 17 95 Room Air I&O- Last 24 Hours up to 6 AM 04/02/20 05:59 Intake Total 2040 ml Output Total 225 ml Balance 1815 ml JULIAN LANIER MD Apr 02, 2020 09:15
--- NOTE | 2020-04-02 21:18 | CR ---
CONSULTATION DATE: 04/02/2020 REQUESTING PHYSICIAN: Robbie Ravi MD CONSULTING PHYSICIAN: Lawrence Galdamez MD REASON FOR CONSULTATION: Management of acute renal failure. CHIEF COMPLAINT: Patient presented on 03/30/2020 because of fall and pubic ramus fracture. HISTORY OF PRESENT ILLNESS: Manpreet García is an 89-year-old male with a past medical history of hypertension, Parkinsonism, hypothyroidism, other comorbidities as mentioned below. He presented to the hospital with right hip pain and further investigation showed that he had a nondisplaced fracture of the inferior pubic ramus. He was admitted under the hospitalist service. He was also found to have acute renal failure with a creatinine of 1.9 on arrival. Looking at his records, his baseline creatinine was around 1.7 as of July 2016. Despite treatment in the hospital and getting IV fluids his renal function actually got worse and his creatinine bumped up to 2.5 yesterday so nephrology service was called for further help in the management of this patient. I saw and evaluated the patient today morning at the bedside. Most of the history was obtained from patient's chart and from medical team. He himself was unable to provide any reliable history. Patient was getting IV fluid hydration when I examined him. PAST MEDICAL HISTORY: Past medical history of chronic kidney disease stage III, most likely, best baseline creatinine as per records is 1.7, Parkinsonism, hypertension, hypothyroidism, BPH. PAST SURGICAL HISTORY: Status post appendectomy and circumcision. ALLERGIES: Allergic to AMLODIPINE. FAMILY HISTORY: No significant family history of end-stage renal disease. SOCIAL HISTORY: There is no significant history of smoking, alcohol abuse, or drug abuse. REVIEW OF SYSTEMS: Patient was unable to provide me with any review of systems when I examined him, he was slightly encephalopathic and was not answering appropriately to questions. PHYSICAL EXAMINATION: General: Patient is awake, alert, oriented times one only, laying in bed. Vital signs: Temperature is 97.9 degrees Fahrenheit, blood pressure 166/88, pulse is 87, respiratory rate of 18, saturating 95% on room air. Intake and output: Urine output is not being recorded. Weight in the bed scale 2 days ago was 83.5 kg. Head and neck exam: Extraocular muscles intact. Pupils equally round and reactive to light. Mucous membranes are very dry. Neck is supple. There is no jugular venous distension (JVD). Cardiovascular: S1, S2, regular rate. No edema of the bilateral lower extremities. Respiratory: Chest is clear to auscultation bilaterally. Bilateral equal air entry. No rales or rhonchi. Abdomen: Soft, positive bowel sounds, nontender, no organomegaly. Genitourinary: He does not have any Goodman catheter. Bladder is not palpable. Musculoskeletal: No clubbing or cyanosis. Pulses are 2+. Central nervous system (GIFT CONSULTANT): Patient is oriented times one. He is able to follow a few commands and moves extremities. HOME MEDICATIONS: Patient's home medications include: - allopurinol 300 mg - doxazosin 2 mg - levothyroxine 100 mcg - lisinopril 5 mg by mouth daily - metoprolol 100 mg - multivitamin - Senna-Lax - Flomax 0.4 mg by mouth daily CURRENT INPATIENT MEDICATIONS: Patient's medications at this time include: - Ringer's lactate at 80 mL/hour - Tylenol three times a day - allopurinol 300 mg by mouth daily - Pepcid 20 mg twice a day - heparin - levothyroxine 100 mcg by mouth daily - metoprolol XL 100 mg by mouth daily - morphine as needed for pain - multivitamin - olanzapine 2.5 mg by mouth twice a day - MiraLax one packet by mouth daily - Senna - Flomax - tramadol ASSESSMENT AND PLAN: 1. Acute renal failure. It is most likely secondary to dehydration, volume depletion, use of lisinopril at home. Patient is getting IV fluid hydration. His renal function is improving. Creatinine is down to 2. Best baseline creatinine as per records is 1.7. 2. Chronic gout secondary to chronic kidney disease. Continue current dose of allopurinol 300 mg by mouth daily. 3. Hypotension. Blood pressure is controlled with current dose of metoprolol XL. Avoid use of angiotensin converting enzymes (TAMICA) inhibitors or angiotensin-receptor blockers at this time. 4. Pubic ramus fracture. Patient is getting Tylenol for pain. Avoid nonsteroidal anti-inflammatory drugs (NSAIDs) at this time. He is also on morphine as needed for pain. Thank you for involving me in the care of this patient. I shall be happy to follow the patient along with you tomorrow morning.
[2020-04-02] MEDS: TAMSULOSIN 0.4 MG CAP PO SCH (21:58)
[2020-04-02] MEDS: SENNA 8.6 MG TAB (SENOKOT) PO SCH (21:59)
[2020-04-02 22:00] VITALS: BP 162/108
[2020-04-03] MEDS: LEVOTHYROXINE 100MCG TABLET (0.1MG) PO SCH (06:34)
[2020-04-03] MEDS: METOPROLOL SUCC (TopROL XL) 100MG *XL* TAB PO SCH (09:05)
[2020-04-03] MEDS: LR 1,000 ML IV SCH (09:05)
[2020-04-03] MEDS: allopurinoL 300 MG TAB PO SCH (09:05)
[2020-04-03] MEDS: OLANZapine 2.5MG TABLET PO SCH (09:06)
[2020-04-03] MEDS: ACETAMINOPHEN 500 MG TAB PO SCH ×3 (09:06→21:01)
[2020-04-03] MEDS: HEPARIN SOD (PORCINE) 5000UNITS/ML 1ML VIAL/SYRINGE SC SCH ×2 (09:06→21:01)
[2020-04-03] MEDS: FAMOTIDINE 20 MG TAB PO SCH ×2 (09:06→21:01)
[2020-04-03] MEDS: MULTIVITAMINS/MINERALS THERAP 1 TAB PO SCH (09:07)
[2020-04-03 10:20] LABS: HEMOGLOBIN 13.9 g/dl (13.5-17.5); MEAN CORPUSCULAR HEMOGLOBIN 30.4 pg (27.0-33.0); MEAN CORPUSCULAR HGB CONC 33.1 g/dl (32.0-36.5); MEAN CORPUSCULAR VOLUME 91.9 fl (80.0-96.0); PLATELET COUNT, AUTOMATED 153 10^3/uL (150-450); RED BLOOD COUNT 4.57 10^6/uL (4.30-6.10); WHITE BLOOD COUNT 9.5 10^3/uL (4.0-10.0)
[2020-04-03 10:37] LABS: CALCIUM LEVEL 9.4 MG/DL (8.8-10.2); CREATININE FOR GFR 1.67 MG/DL (0.70-1.30); GLOMERULAR FILTRATION RATE 41.4 (>35); POTASSIUM SERUM 4.3 MEQ/L (3.5-5.1)
--- NOTE | 2020-04-03 13:32 | IPNPDOC ---
Text Note Date of Service The patient was seen on 04/03/20. NOTE Subjective: -No acute issues overnight -Continuous to be only oriented to self and completely delirious, talking to self, grabbing at air, completely out of character from his state at admission -Speech is clear but content is congruent with the ongoing conversation Objective: General: Alert, Cooperative, No Acute Distress Eye: EOMI, anicteric ENT: Atraumatic, very dry MM Neck: Supple Chest: Clear to auscultation bilaterally Heart: Rate Normal, Regular Rhythm, no mrg Abdomen: Normal bowel sounds, soft, NTND Neuro: Normal Speech without dysarthria, Cranial Nerves 3-12 NL, moving all extremities, AOx1 to self Labs: WBC 9.5 Hgb 13.9 platelets 153 na 141 K 4.3 Cr 1.67 Assessment: 89 year old M with gout, hypothyroidism, likely Parkinson's with labile mentation and disturbed sleep wake cycle and CKD who is here for right hip pain and found to have a nondisplaced fracture of the inferior pubic ramus, with oliguric BRITTNY in the setting of recent NSAIDs for the right leg/hip pain, with nephrology now consulted and recommended continued hydration. Plan 1. Right inferior pubic ramus fracture -Etiology remains unclear at this time -Patient noncompliant with cancer screenings, declines cancer screening -Ok for bone scan -Pain control with scheduled Tylenol and PRN Ultram -Physical therapy for ambulation -Will need rehab, to discuss with family 2. BRITTNY on CKD i/s/o NSAIDs, lisinopril and likely poor PO. Now back to baseline -Baseline creatinine around 1.7 -On admission creatinine 1.9 and uptrended, now downtrending with hydration -IVF with LR, holding Lasix and lisinopril -Nephrology consulted 3. Gout -No acute flares at this time -Continue Allopurinol 4. Hypertension -BP controlled -Continue with Toprol XL 5. BPH -Continue Tamsulosin 6. Constipation -Continue Senna and PRN Miralax 7. GERD -Continue Famotidine 8. Hypothyroidism -Continue levothyroxine 9. Acute encephalopathy on background history of Parkinson's -Diabetes Clinical Manager comes in to help calm patient -DC olanzapine BID that was started inpatient --> c/f being precipitant 10. DVT ppx -Heparin subq Disposition: Now that renal function has improved, patient will need rehab and will discuss this with PT, family and PFS ARGELIA,Pito, I+O VSPito, I+O Laboratory Tests 04/03/20 09:59 Vital Signs Date Time Temp Pulse Resp B/P (MAP) Pulse Ox O2 Delivery O2 Flow Rate FiO2 04/03/20 09:05 133/79 04/02/20 22:00 99.1 86 18 93 Room Air I&O- Last 24 Hours up to 6 AM 04/03/20 06:00 Intake Total 960 ml Output Total 0 ml Balance 960 ml JULIAN LANIER MD Apr 03, 2020 10:51
[2020-04-03 14:00] VITALS: BP 127/74
[2020-04-03] MEDS: SENNA 8.6 MG TAB (SENOKOT) PO SCH (21:01)
[2020-04-03] MEDS: TAMSULOSIN 0.4 MG CAP PO SCH (21:01)
--- NOTE | 2020-04-03 21:34 | IPN ---
PROGRESS NOTE DATE: 04/03/2020 SUBJECTIVE: The patient was seen and examined at the bedside today morning. He was obtunded. He continues to be on IV fluid hydration. I was told by the nursing staff that the patient is not eating much. Bedside bladder scan was done and there was less than 100 mL of urine in the bladder. With the IV fluid hydration, his renal function continues to improve. The patient was unable to provide any review of systems. OBJECTIVE: VITAL SIGNS: Temperature 98 degrees Fahrenheit, blood pressure 127/74, pulse 78, respiratory rate 20, saturating 96% on room air. INTAKE AND OUTPUT: Urine output is not recorded. He is incontinent. Weight on the bed scale is not available. GENERAL: The patient is awake, but obtunded. Follows few commands. HEAD AND NECK: Pupils are equally round and reactive to light. Mucous membranes are moist. Neck is supple. Mildly elevated JVD. CARDIOVASCULAR: S1, S2. Regular rate. No edema of the bilateral lower extremities. RESPIRATORY: Chest is clear to auscultation bilaterally. Bilateral equal air entry. No rales or rhonchi. ABDOMEN: Soft. Positive bowel sounds and nontender. No organomegaly. GENITOURINARY: Bladder is not palpable. MUSCULOSKELETAL: No clubbing or cyanosis. Pulses are 2+. LEGAL ASSOCIATE: The patient is obtunded and follows few commands. LABORATORY REVIEW: CBC showed a WBC of 9.5, hemoglobin 13.9, platelets 153,000. BMP showed sodium 141, potassium 4.3, chloride 109, bicarb 23, BUN 33, creatinine 1.67 and it was 2.0 yesterday. CURRENT INPATIENT MEDICATIONS: The patient's medications were all reviewed by myself. He continues to be on IV fluid hydration with ringers lactated 80 mL/hour. He is getting morphine p.r.n. for pain. I see that his olanzapine has been stopped and tramadol has been stopped. ASSESSMENT AND PLAN: 1. Acute renal failure. This was secondary to dehydration and volume depletion. The patient as given IV fluid hydration and his creatinine has nicely improved to 1.6. I would hold the IV fluids in the afternoon today because of risk of volume overload. Continue to encourage oral hydration. 2. Pubic ramus fracture. The patient is encephalopathic. Pain is being optimized with opioids. His olanzapine and tramadol have been stopped. 3. Chronic gout secondary to chronic kidney disease. Continue current dose of allopurinol 100 mg p.o. daily. 4. Hypertension. Blood pressure is controlled with metoprolol 100 mg p.o. daily.
[2020-04-04] MEDS: LEVOTHYROXINE 100MCG TABLET (0.1MG) PO SCH (05:35)
[2020-04-04 06:00] VITALS: BP 196/92
[2020-04-04] MEDS ORDERED: BENZONATATE 100 MG CAP PO ONE (06:15)
[2020-04-04] MEDS: allopurinoL 300 MG TAB PO SCH (09:17)
[2020-04-04] MEDS: MULTIVITAMINS/MINERALS THERAP 1 TAB PO SCH (09:18)
[2020-04-04] MEDS: ACETAMINOPHEN 500 MG TAB PO SCH ×3 (09:18→21:01)
[2020-04-04] MEDS: FAMOTIDINE 20 MG TAB PO SCH ×2 (09:18→21:01)
[2020-04-04] MEDS: METOPROLOL SUCC (TopROL XL) 100MG *XL* TAB PO SCH (09:21)
[2020-04-04] MEDS: HEPARIN SOD (PORCINE) 5000UNITS/ML 1ML VIAL/SYRINGE SC SCH ×2 (09:23→21:01)
[2020-04-04 10:02] LABS: HEMOGLOBIN 13.9 g/dl (13.5-17.5); MEAN CORPUSCULAR HEMOGLOBIN 29.8 pg (27.0-33.0); MEAN CORPUSCULAR HGB CONC 32.3 g/dl (32.0-36.5); MEAN CORPUSCULAR VOLUME 92.1 fl (80.0-96.0); PLATELET COUNT, AUTOMATED 157 10^3/uL (150-450); RED BLOOD COUNT 4.67 10^6/uL (4.30-6.10); WHITE BLOOD COUNT 9.8 10^3/uL (4.0-10.0)
[2020-04-04 10:11] LABS: CALCIUM LEVEL 9.3 MG/DL (8.8-10.2); CREATININE FOR GFR 1.7 MG/DL (0.70-1.30); GLOMERULAR FILTRATION RATE 40.6 (>35); POTASSIUM SERUM 4.3 MEQ/L (3.5-5.1)
--- NOTE | 2020-04-04 11:32 | REP ---
INDICATION: delirium COMPARISON: 06/15/2017 TECHNIQUE: Portable AP view of the chest FINDINGS: Examination is limited by portable technique, underpenetration and poor inspiratory effort along with positioning. Mediastinum and cardiac silhouette are grossly stable and within normal limits. Lung ding demonstrate diffuse chronic interstitial changes similar to prior examination. Subtle superimposed left lower lobe airspace disease cannot be excluded and requires clinical correlation and auscultation. No obvious effusion. No pneumothorax. Skeletal structures stable. IMPRESSION: Chronic stable changes. Cannot exclude superimposed left lower lobe airspace disease. <Electronically signed by Dev Carlos > 04/04/20 1120
[2020-04-04 11:42] LABS: APPEARANCE, URINE CLEAR (CLEAR); BACTERIA, URINE AUTO NEGATIVE (NEGATIVE); BILIRUBIN, URINE AUTO NEGATIVE (NEGATIVE); BLOOD, URINE BLOOD 2+ (NEGATIVE); COLOR, URINE YELLOW (YELLOW); GLUCOSE, URINE (UA) AUTO NEGATIVE (NEGATIVE); KETONE, URINE AUTO 2+ mg/dL (NEGATIVE); LEUKOCYTE ESTERASE, URINE AUTO NEGATIVE (NEGATIVE); MUCUS, URINE SMALL (NEGATIVE); NITRITE, URINE AUTO NEGATIVE (NEGATIVE); PROTEIN, URINE AUTO NEGATIVE (NEGATIVE); RBC, URINE AUTO 48 /HPF (0-3); SPECIFIC GRAVITY URINE AUTO 1.014 (1.002-1.035); SQUAMOUS EPITHELIAL CELL UR AU 0 /HPF (0-6); UROBILINOGEN, URINE AUTO 0.2 mg/dL (0.0-2.0); WBC, URINE AUTO 1 /HPF (0-3)
--- NOTE | 2020-04-04 12:19 | IPNPDOC ---
Text Note Date of Service The patient was seen on 04/04/20. NOTE Subjective: -No acute issues overnight -Still confused, sleepy -Could not comprehend swallowing and taking PO, nursing concerned about potential aspiration as he was coughing. Objective: General: Alert, Cooperative, No Acute Distress Eye: EOMI, anicteric ENT: Atraumatic, very dry MM Neck: Supple Chest: Clear to auscultation bilaterally with rhonchorus transmitted upper air way sounds, no sabine crackles or wheezing. Breathing comfortably on room air Heart: Rate Normal, Regular Rhythm, no mrg Abdomen: Normal bowel sounds, soft, NTND Neuro: Normal Speech without dysarthria, Cranial Nerves 3-12 NL, moving all extremities, AOx1 to self Labs: WBC 9.8 hgb 13.9 platelets 157 na 142 K 4.3 Cr 1.7 Assessment: 89 year old M with gout, hypothyroidism, likely Parkinson's with labile mentation and disturbed sleep wake cycle and CKD who is here for right hip pain and found to have a nondisplaced fracture of the inferior pubic ramus, with oliguric BRITTNY in the setting of recent NSAIDs for the right leg/hip pain, with nephrology consulted and recommended continued hydration, with course now c/b sabine delirium/acute encephalopathy. Plan 1. Right inferior pubic ramus fracture -Etiology remains unclear at this time -Patient noncompliant with cancer screenings, declines cancer screening -Pain control with scheduled Tylenol -Physical therapy for ambulation when mentation improved -Will need rehab, to discuss with family 2. BRITTNY on CKD i/s/o NSAIDs, lisinopril and likely poor PO. Now back to baseline -Baseline creatinine around 1.7 -On admission creatinine 1.9 and uptrended, now downtrending with hydration -IVF with LR, holding Lasix and lisinopril -Nephrology consulted 3. Gout -No acute flares at this time -Continue Allopurinol 4. Hypertension -BP controlled -Continue with Toprol XL 5. BPH -Continue Tamsulosin 6. Constipation -Continue Senna and PRN Miralax 7. GERD -Continue Famotidine 8. Hypothyroidism -Continue levothyroxine 9. Acute encephalopathy on background history of Parkinson's -DC'd olanzapine BID that was started inpatient, on 04/03 --> c/f being precipitant -Also dc'd tramadol on 04/03 -UA was with mild hematuria but otherwise bland -CXR without infiltrates 10. DVT ppx -Heparin subq Disposition: Now that renal function has improved, course c/b sabine delirium, and at this time when it improves, he will need rehab and will discuss this with family and PFS VS,Fishbone, I+O VS, Fishbone, I+O Laboratory Tests 04/03/20 09:59 Vital Signs Date Time Temp Pulse Resp B/P (MAP) Pulse Ox O2 Delivery O2 Flow Rate FiO2 04/04/20 06:00 97.5 83 18 196/92 (126) 98 Room Air I&O- Last 24 Hours up to 6 AM 04/04/20 06:00 Intake Total 0 ml Output Total 0 ml Balance 0 ml JULIAN LANIER MD Apr 04, 2020 09:10
[2020-04-04] MEDS: KCL 20MEQ IN D5W 1000ML 1,000 ML IV SCH (12:28)
[2020-04-04 14:00] VITALS: BP 130/76
--- NOTE | 2020-04-04 14:43 | IPN ---
NEPHROLOGY PROGRESS NOTE DATE: 04/04/2020 SUBJECTIVE: The patient was seen and examined at the bedside today morning. This patient is still obtunded. I was told by the nursing staff he is unable to eat anything. He actually starts coughing when they try to feed him. They did an x-ray as well to rule out aspiration pneumonitis. The patient's IV fluids were stopped yesterday but it looks like the patient would need to start on some sort of IV fluid hydration. Renal function is stable today as compared with yesterday. OBJECTIVE: VITAL SIGNS: Temperature is 97.5 degrees Fahrenheit, blood pressure is 190/88, pulse is 81, respiratory rate of 18, saturating 98% on room air. INTAKE AND OUTPUT: Urine output is not recorded. He has incontinent voids. Weight in the bed scale is not available. PHYSICAL EXAMINATION: GENERAL APPEARANCE: The patient is awake but obtunded and encephalopathic. He cannot communicate with me. HEAD AND NECK: Pupils are equally round and reactive to light. Mucous membranes are moist. Neck is supple. There is no jugular venous distention. CARDIOVASCULAR: S1, S2, regular rate. EXTREMITIES: No edema of the bilateral lower extremities. RESPIRATORY: Chest is clear to auscultation bilaterally. ABDOMEN: Soft, positive bowel sounds, nontender, no organomegaly. GENITOURINARY: Bladder is not palpable. MUSCULOSKELETAL: No clubbing, no cyanosis. Pulses are 2+. He does report right hip pain. UNDERWRITING SALES REPRESENTATIVE: No focal deficits. He moves extremities but he is obtunded. LAB REVIEW: CBC showed a WBC of 9.8, hemoglobin 13.9, platelets are 156. Urinalysis done today showed 2+ protein, 2+ blood and 48 RBCs. BMP showed sodium of 142, potassium 4.3, chloride 108, bicarbonate 20, BUN 33, creatinine is 1.7, it was 1.6 yesterday. IMAGING: A chest x-ray was done today morning which showed chronic stable changes. Cannot exclude superimposed left lower lobe air space disease. CURRENT INPATIENT MEDICATIONS: The patient's medications were all reviewed by myself. I have started the patient on D5W with KCL 20 mEq at 50 mL an hour because he is not eating much. No other significant change in the medications today as compared with yesterday. ASSESSMENT AND PLAN: 1. Acute renal failure the patient's renal function improved after IV fluid hydration. He is not able to eat much now, so I have started him on D5 containing fluids so that his blood pressure does not increase by normal saline. 2. Metabolic encephalopathy Avoid further use of opioid pain medications. The patient was very sleepy when I saw him in the morning. 3. Hypertension - continue current dose of Metoprolol . If blood pressure stays above 160, he can be given IV Hydralazine. 4. Right inferior pubic ramus fracture - continue physical therapy at this time. Continue Tylenol. Avoid further use of opioids because of encephalopathy. MTDD
[2020-04-04] MEDS: TAMSULOSIN 0.4 MG CAP PO SCH (20:29)
[2020-04-04] MEDS: SENNA 8.6 MG TAB (SENOKOT) PO SCH (20:29)
[2020-04-04 22:00] VITALS: BP 139/79
[2020-04-05 06:00] VITALS: BP 155/92
[2020-04-05] MEDS: LEVOTHYROXINE 100MCG TABLET (0.1MG) PO SCH (06:09)
[2020-04-05 06:57] LABS: HEMATOCRIT 37.7 % (42.0-52.0); HEMOGLOBIN 12.6 g/dl (13.5-17.5); MEAN CORPUSCULAR HEMOGLOBIN 31.1 pg (27.0-33.0); MEAN CORPUSCULAR HGB CONC 33.4 g/dl (32.0-36.5); MEAN CORPUSCULAR VOLUME 93.1 fl (80.0-96.0); PLATELET COUNT, AUTOMATED 142 10^3/uL (150-450); RED BLOOD COUNT 4.05 10^6/uL (4.30-6.10); WHITE BLOOD COUNT 7.4 10^3/uL (4.0-10.0)
[2020-04-05 07:22] LABS: CREATININE FOR GFR 1.64 MG/DL (0.70-1.30); GLOMERULAR FILTRATION RATE 42.3 (>35); POTASSIUM SERUM 3.8 MEQ/L (3.5-5.1)
[2020-04-05] MEDS: METOPROLOL SUCC (TopROL XL) 100MG *XL* TAB PO SCH (07:44)
[2020-04-05] MEDS: FAMOTIDINE 20 MG TAB PO SCH ×2 (07:44→20:15)
[2020-04-05] MEDS: MULTIVITAMINS/MINERALS THERAP 1 TAB PO SCH (07:44)
[2020-04-05] MEDS: allopurinoL 300 MG TAB PO SCH (07:44)
[2020-04-05] MEDS: ACETAMINOPHEN 500 MG TAB PO SCH ×3 (07:45→20:16)
[2020-04-05] MEDS: HEPARIN SOD (PORCINE) 5000UNITS/ML 1ML VIAL/SYRINGE SC SCH ×2 (07:46→20:15)
[2020-04-05] MEDS: KCL 20MEQ IN D5W 1000ML 1,000 ML IV SCH (07:46)
[2020-04-05] MEDS: MIRALAX *UNIT DOSE* 17GM PACKET PO PRN (07:52)
--- NOTE | 2020-04-05 11:13 | IPNPDOC ---
Text Note Date of Service The patient was seen on 04/05/20. NOTE Subjective: -No acute issues overnight -Mental status has cleared and tremendously improved. Fully oriented, speech is clear, great historian, pleasant. Objective: General: Sleepy, No Acute Distress Eye: EOMI, anicteric ENT: Atraumatic, dry MM Neck: Supple Chest: Clear to auscultation bilaterally, no sabine crackles or wheezing anteriorly. Heart: Rate Normal, Regular Rhythm, no mrg Abdomen: Normal bowel sounds, soft, NTND Neuro: Cranial Nerves 3-12 NL, moving all extremities Psych: AOx3 Labs: WBC 7.4 hgb 12.6 platelets 142 na 143 K 3.8 Cr 1.64 Assessment: 89 year old M with gout, hypothyroidism, likely Parkinson's with labile mentation and disturbed sleep wake cycle and CKD who is here for right hip pain and found to have a nondisplaced fracture of the inferior pubic ramus, with oliguric BRITTNY in the setting of recent NSAIDs for the right leg/hip pain, with nephrology consulted and recommended continued hydration, with course c/b medication induced encephalopathy. Plan 1. Right inferior pubic ramus fracture -Etiology remains unclear at this time -Patient noncompliant with cancer screenings, declines cancer screening -Pain control with scheduled Tylenol -Physical therapy for ambulation now that mentation has improved -Will need rehab 2. BRITTNY on CKD i/s/o NSAIDs, lisinopril and likely poor PO. Now back to baseline, resolved. -Baseline creatinine around 1.7 -On admission creatinine 1.9 and uptrended, now downtrending with hydration -IVF, holding Lasix and lisinopril -Nephrology consulted 3. Gout -No acute flares at this time -Continue Allopurinol 4. Hypertension -BP controlled -Continue with Toprol XL 5. BPH -Continue Tamsulosin 6. Constipation -Continue Senna and PRN Miralax 7. GERD -Continue Famotidine 8. Hypothyroidism -Continue levothyroxine 9. Acute encephalopathy on background history of Parkinson's i/s/o of new psychotropes. Resolved with stopping tramadol and zyprexa -DC'd olanzapine BID that was started inpatient, on 04/03 --> c/f being precipitant -Also dc'd tramadol on 04/03 -UA was with mild hematuria but otherwise bland -CXR without infiltrates -No leukocytosis -monitor daily CBC 10. DVT ppx -Heparin subq Disposition: Now that renal function has improved, and encephalopathy has improved, will need PT eval and he will need rehab and will discuss this with the patient and family and PFS. VS,Fishbone, I+O VS, Fishbone, I+O Laboratory Tests 04/04/20 09:30 04/05/20 06:43 Vital Signs Date Time Temp Pulse Resp B/P (MAP) Pulse Ox O2 Delivery O2 Flow Rate FiO2 04/05/20 07:44 66 155/92 04/05/20 06:00 97.4 18 94 Room Air I&O- Last 24 Hours up to 6 AM 04/05/20 06:00 Intake Total 750 ml Output Total 0 ml Balance 750 ml JULIAN LANIER MD Apr 05, 2020 08:50
[2020-04-05 14:00] VITALS: BP 119/70
[2020-04-05] MEDS: TAMSULOSIN 0.4 MG CAP PO SCH (20:15)
[2020-04-05] MEDS: SENNA 8.6 MG TAB (SENOKOT) PO SCH (20:15)
[2020-04-05 21:22] VITALS: BP 165/78
--- NOTE | 2020-04-05 22:19 | IPN ---
NEPHROLOGY PROGRESS NOTE DATE: 04/05/2020 SUBJECTIVE: The patient was seen and examined at the bedside today morning. The patient is much more awake and alert today, and I was told by the nursing staff he is able to eat and drink now. His medications were changed by the Medical Team yesterday. Renal function is stable with a creatinine of 1.6 from 1.7 yesterday. He denies any active complaints. OBJECTIVE: VITAL SIGNS: Temperature is 97.2 degrees Fahrenheit, blood pressure 119/70, pulse is 79, respiratory rate of 18, saturating 94% on room air. INTAKE AND OUTPUT: Urine output is not recorded well. Weight in the bed scale is 84.6 kg. PHYSICAL EXAMINATION: GENERAL APPEARANCE: The patient is awake, alert, oriented x2, sitting up in the bed in no apparent distress. HEAD AND NECK: Extraocular muscles intact. Pupils are equally round and reactive to light. Mucous membranes are moist. Neck is supple. There is no jugular venous distention. CARDIOVASCULAR: S1, S2, regular rate. EXTREMITIES: No edema of the bilateral lower extremities. RESPIRATORY: Chest is clear to auscultation bilaterally. Bilaterally currently no rales or rhonchi. ABDOMEN: Soft, positive bowel sounds, nontender, no organomegaly. MUSCULOSKELETAL: No clubbing, no cyanosis. Pulses are 2+. DRIVER TRAINEE: No focal deficits. Power is 5/5 in all extremities. LAB REVIEW: CBC showed a WBC of 7.4, hemoglobin 12.6, platelets are 142. BMP showed a sodium of 143, potassium 3.8, chloride 111, bicarbonate 22, BUN 35, creatinine is 1.6. It was 1.7 yesterday. CURRENT INPATIENT MEDICATIONS: The patient's medications were all reviewed by myself. He was given potassium chloride and d5w at 50 mL an hour for a total of two bags. No other significant change in the medications as compared with yesterday. ASSESSMENT AND PLAN: 1. Acute renal failure - renal function continues to improve. He was given IV fluids and he is also able to take oral fluids now. Creatinine is getting better. Electrolytes are within the acceptable range. 2. Metabolic encephalopathy clinically he is much better today. Further management is as per Medical Team. Encephalopathy is not related to renal insufficiency. 3. Hypertension - blood pressure is controlled with Metoprolol. Disposition the patient's renal function is stable and improving. Nephrology Service is going to sign off at this moment. Please call Nephrology Service for any help in the management of this patient during this hospitalization .
[2020-04-06] MEDS: LEVOTHYROXINE 100MCG TABLET (0.1MG) PO SCH (05:44)
[2020-04-06 05:54] VITALS: BP 166/78
[2020-04-06 07:34] LABS: HEMATOCRIT 36.4 % (42.0-52.0); HEMOGLOBIN 11.6 g/dl (13.5-17.5); MEAN CORPUSCULAR HEMOGLOBIN 30.3 pg (27.0-33.0); MEAN CORPUSCULAR HGB CONC 31.9 g/dl (32.0-36.5); PLATELET COUNT, AUTOMATED 151 10^3/uL (150-450); RED BLOOD COUNT 3.83 10^6/uL (4.30-6.10); WHITE BLOOD COUNT 6.7 10^3/uL (4.0-10.0)
[2020-04-06 08:01] LABS: CALCIUM LEVEL 8.5 MG/DL (8.8-10.2); CREATININE FOR GFR 1.65 MG/DL (0.70-1.30); POTASSIUM SERUM 3.8 MEQ/L (3.5-5.1)
[2020-04-06] MEDS: FAMOTIDINE 20 MG TAB PO SCH ×2 (13:38→20:46)
[2020-04-06] MEDS: ACETAMINOPHEN 500 MG TAB PO SCH ×3 (13:38→20:47)
[2020-04-06] MEDS: allopurinoL 300 MG TAB PO SCH (13:38)
[2020-04-06] MEDS: MULTIVITAMINS/MINERALS THERAP 1 TAB PO SCH (13:38)
[2020-04-06] MEDS: METOPROLOL SUCC (TopROL XL) 100MG *XL* TAB PO SCH ×2 (13:38→15:45)
[2020-04-06] MEDS: HEPARIN SOD (PORCINE) 5000UNITS/ML 1ML VIAL/SYRINGE SC SCH ×2 (13:39→20:47)
[2020-04-06 14:00] VITALS: BP 153/86
--- NOTE | 2020-04-06 15:19 | IPNPDOC ---
Text Note Date of Service The patient was seen on 04/06/20. NOTE Subjective: -No acute issues overnight -Fully oriented, speech is clear, great historian, pleasant. I called and updated his son Cristobal who confirmed that the patient is mostly independent at baseline and has an aide for a few hours a week. Is amenable to plan for rehab if that is what is recommended by PT. Objective: General: Alert, awake, No Acute Distress Eye: EOMI, anicteric ENT: Atraumatic, dry MM Neck: Supple Chest: Clear to auscultation bilaterally, no sabine crackles or wheezing anteriorly. Heart: Rate Normal, Regular Rhythm, no mrg Abdomen: Normal bowel sounds, soft, NTND Neuro: Cranial Nerves 3-12 NL, moving all extremities Psych: AOx3 Labs: WBC 6.7 hgb 11.6 platelets 151 na 144 K 3.8 Cr 1.65 Assessment: 89 year old M with gout, hypothyroidism, likely Parkinson's with labile mentation and disturbed sleep wake cycle and CKD who is here for right hip pain and found to have a nondisplaced fracture of the inferior pubic ramus, with oliguric BRITTNY in the setting of recent NSAIDs for the right leg/hip pain, with nephrology consulted and recommended continued hydration, with course c/b medication induced encephalopathy. Plan 1. Right inferior pubic ramus fracture -Etiology remains unclear at this time -Patient noncompliant with cancer screenings, declines cancer screening -Pain control with scheduled Tylenol -Physical therapy for ambulation now that mentation has improved -Will need rehab -AVOID narcotic/psychotropic pain meds given recent severe delirium 2. BRITTNY on CKD i/s/o NSAIDs, lisinopril and likely poor PO. Now back to baseline, resolved. -Baseline creatinine around 1.7 -On admission creatinine 1.9 and uptrended, now downtrending with hydration -s/p IVF. -holding Lasix and lisinopril -Nephrology consulted 3. Gout -No acute flares at this time -Continue Allopurinol 4. Hypertension -BP controlled -Continue with Toprol XL 5. BPH -Continue Tamsulosin 6. Constipation -Continue Senna and PRN Miralax 7. GERD -Continue Famotidine 8. Hypothyroidism -Continue levothyroxine 9. Acute encephalopathy on background history of Parkinson's i/s/o of new psychotropes. Resolved with stopping tramadol and zyprexa -DC'd olanzapine BID that was started inpatient, on 04/03 --> c/f being precipitant -Also dc'd tramadol on 04/03 -UA was with mild hematuria but otherwise bland -CXR without infiltrates -No leukocytosis -monitor daily CBC 10. DVT ppx -Heparin subq Disposition: Now that renal function has improved, and encephalopathy has improved, will need PT eval and he will need rehab and will discuss this with the patient and PFS. VS,Fishbone, I+O VS, Fishbone, I+O Laboratory Tests 04/06/20 06:51 Vital Signs Date Time Temp Pulse Resp B/P (MAP) Pulse Ox O2 Delivery O2 Flow Rate FiO2 04/06/20 05:54 98.0 61 18 166/78 (107) 97 Room Air I&O- Last 24 Hours up to 6 AM 04/06/20 05:59 Intake Total 1720 ml Output Total 250 ml Balance 1470 ml JULIAN LANIER MD Apr 06, 2020 09:48
[2020-04-06] MEDS: SENNA 8.6 MG TAB (SENOKOT) PO SCH (20:47)
[2020-04-06] MEDS: TAMSULOSIN 0.4 MG CAP PO SCH (20:47)
[2020-04-06 22:00] VITALS: BP 138/74
[2020-04-07 06:00] VITALS: BP 133/63
[2020-04-07] MEDS: LEVOTHYROXINE 100MCG TABLET (0.1MG) PO SCH (06:07)
[2020-04-07 07:40] LABS: HEMATOCRIT 36.8 % (42.0-52.0); HEMOGLOBIN 12.1 g/dl (13.5-17.5); MEAN CORPUSCULAR HEMOGLOBIN 30.3 pg (27.0-33.0); MEAN CORPUSCULAR HGB CONC 32.9 g/dl (32.0-36.5); MEAN CORPUSCULAR VOLUME 92.2 fl (80.0-96.0); PLATELET COUNT, AUTOMATED 169 10^3/uL (150-450); RED BLOOD COUNT 3.99 10^6/uL (4.30-6.10); WHITE BLOOD COUNT 5.9 10^3/uL (4.0-10.0)
[2020-04-07 08:03] LABS: CREATININE FOR GFR 1.62 MG/DL (0.70-1.30); GLOMERULAR FILTRATION RATE 42.9 (>35)
--- NOTE | 2020-04-07 14:48 | IPNPDOC ---
Text Note Date of Service The patient was seen on 04/07/20. NOTE Subjective: -No acute issues overnight -Fully oriented, speech is clear. -I called and updated his son Cristobal yesterday. This morning he called and asking nursing if we could consider a psych consult for possible Parkinson's dementia for episodic hallucinations? On discussing it with nursing and with the patient, he is alert and oriented fully and we decided to referral in the outpatient setting as STAT psych consult in an AOx3 fully oriented patient would not likely yield acute care changes. Objective: General: Alert, awake, No Acute Distress Eye: EOMI, anicteric ENT: Atraumatic, dry MM Neck: Supple Chest: Clear to auscultation bilaterally, no sabine crackles or wheezing anteriorly. Heart: Rate Normal, Regular Rhythm, no mrg Abdomen: Normal bowel sounds, soft, NTND Neuro: Cranial Nerves 3-12 NL, moving all extremities Psych: AOx3 Labs: Reviewed. Stable. Assessment: 89 year old M with gout, hypothyroidism, likely Parkinson's with labile mentation and disturbed sleep wake cycle and CKD who is here for right hip pain and found to have a nondisplaced fracture of the inferior pubic ramus, with oliguric BRITTNY in the setting of recent NSAIDs for the right leg/hip pain, with nephrology consulted and recommended continued hydration, with course c/b medication induced encephalopathy that has resolved. Plan 1. Right inferior pubic ramus fracture -Etiology remains unclear at this time -Patient noncompliant with cancer screenings, declines cancer screening -Pain control with scheduled Tylenol -Physical therapy for ambulation now that mentation has improved, doing well with them -May need rehab given that he is mostly independent with most things in the outp atient setting -AVOID narcotic/psychotropic pain meds given recent severe delirium 2. BRITTNY on CKD i/s/o NSAIDs, lisinopril and likely poor PO. Now back to baseline, resolved. -Baseline creatinine around 1.7 -On admission creatinine 1.9 and uptrended, now downtrending with hydration -s/p IVF. -holding Lasix and lisinopril -Nephrology consulted 3. Gout -No acute flares at this time -Continue Allopurinol 4. Hypertension -BP controlled -Continue with Toprol XL 5. BPH -Continue Tamsulosin 6. Constipation -Continue Senna and PRN Miralax 7. GERD -Continue Famotidine 8. Hypothyroidism -Continue levothyroxine 9. Acute encephalopathy on background history of Parkinson's i/s/o of new psychotropes. Resolved with stopping tramadol and zyprexa -DC'd olanzapine BID that was started inpatient, on 04/03 --> c/f being precipitant -Also dc'd tramadol on 04/03 -UA was with mild hematuria but otherwise bland -CXR without infiltrates -No leukocytosis -monitor daily CBC -Will refer back to neurol and psych at discharge for the Parkinson's and potential Parkinson's dementia 10. DVT ppx -Heparin subq Disposition: Now that renal function has improved, and encephalopathy has improved, is working with PT and doing well and may need rehab and will discuss this with the patient, PT and PFS. VS,Fishbone, I+O VS, Fishbone, I+O Laboratory Tests 04/07/20 06:53 Vital Signs Date Time Temp Pulse Resp B/P (MAP) Pulse Ox O2 Delivery O2 Flow Rate FiO2 04/07/20 06:00 99.2 57 20 133/63 (86) 93 Room Air I&O- Last 24 Hours up to 6 AM 04/07/20 06:00 Intake Total 700 ml Output Total 700 ml Balance 0 ml JULIAN LANIER MD Apr 07, 2020 14:48
[2020-04-07] MEDS: FAMOTIDINE 20 MG TAB PO SCH ×2 (15:18→22:54)
[2020-04-07] MEDS: MULTIVITAMINS/MINERALS THERAP 1 TAB PO SCH (15:18)
[2020-04-07] MEDS: HEPARIN SOD (PORCINE) 5000UNITS/ML 1ML VIAL/SYRINGE SC SCH ×2 (15:19→22:54)
[2020-04-07] MEDS: allopurinoL 300 MG TAB PO SCH (15:19)
[2020-04-07] MEDS: ACETAMINOPHEN 500 MG TAB PO SCH ×3 (15:19→22:55)
[2020-04-07 15:56] VITALS: BP_SYST 126; BP_SYST 141; BP_DIAS 71; BP_DIAS 76
[2020-04-07] MEDS: METOPROLOL SUCC (TopROL XL) 100MG *XL* TAB PO SCH (16:45)
[2020-04-07 22:00] VITALS: BP 151/67
[2020-04-07] MEDS: SENNA 8.6 MG TAB (SENOKOT) PO SCH (22:55)
[2020-04-07] MEDS: TAMSULOSIN 0.4 MG CAP PO SCH (22:55)
[2020-04-08 06:00] VITALS: BP 168/84
[2020-04-08] MEDS: LEVOTHYROXINE 100MCG TABLET (0.1MG) PO SCH (06:19)
[2020-04-08 07:54] LABS: HEMATOCRIT 36.8 % (42.0-52.0); HEMOGLOBIN 12.4 g/dl (13.5-17.5); MEAN CORPUSCULAR HEMOGLOBIN 31.5 pg (27.0-33.0); MEAN CORPUSCULAR HGB CONC 33.7 g/dl (32.0-36.5); MEAN CORPUSCULAR VOLUME 93.4 fl (80.0-96.0); PLATELET COUNT, AUTOMATED 165 10^3/uL (150-450); RED BLOOD COUNT 3.94 10^6/uL (4.30-6.10); WHITE BLOOD COUNT 6.5 10^3/uL (4.0-10.0)
[2020-04-08 08:11] LABS: CALCIUM LEVEL 8.9 MG/DL (8.8-10.2); CREATININE FOR GFR 1.77 MG/DL (0.70-1.30); GLOMERULAR FILTRATION RATE 38.8 (>35); POTASSIUM SERUM 3.9 MEQ/L (3.5-5.1)
[2020-04-08] MEDS: METOPROLOL SUCC (TopROL XL) 100MG *XL* TAB PO SCH (10:15)
[2020-04-08] MEDS: FAMOTIDINE 20 MG TAB PO SCH ×2 (10:15→21:15)
[2020-04-08] MEDS: allopurinoL 300 MG TAB PO SCH (10:15)
[2020-04-08] MEDS: MULTIVITAMINS/MINERALS THERAP 1 TAB PO SCH (10:16)
[2020-04-08] MEDS: ACETAMINOPHEN 500 MG TAB PO SCH ×3 (10:17→21:16)
[2020-04-08] MEDS: HEPARIN SOD (PORCINE) 5000UNITS/ML 1ML VIAL/SYRINGE SC SCH ×2 (10:19→21:16)
--- NOTE | 2020-04-08 11:56 | IPNPDOC ---
Text Note Date of Service The patient was seen on 04/08/20. NOTE Subjective: -No acute issues overnight -Fully oriented, speech is clear. -I called and updated his son Cristobal yesterday. He however called and asking nursing for a psych consult for possible Parkinson's dementia for episodic hallucinations? and an MRI. On discussing it with nursing and with the patient, he is alert and oriented fully and we decided to referral in the outpatient setting as STAT psych consult in an AOx3 fully oriented patient would not likely yield acute care changes. I communicated this with the son this morning. Objective: General: Alert, awake, No Acute Distress Eye: EOMI, anicteric ENT: Atraumatic, dry MM Neck: Supple Chest: Clear to auscultation bilaterally, no sabine crackles or wheezing anteriorly. Heart: Rate Normal, Regular Rhythm, no mrg Abdomen: Normal bowel sounds, soft, NTND Neuro: Cranial Nerves 3-12 NL, moving all extremities Psych: AOx3 Labs: Reviewed. Stable. Assessment: 89 year old M with gout, hypothyroidism, likely Parkinson's with labile mentation and disturbed sleep wake cycle and CKD who is here for right hip pain and found to have a nondisplaced fracture of the inferior pubic ramus, with oliguric BRITTNY in the setting of recent NSAIDs for the right leg/hip pain, with nephrology consulted and recommended continued hydration, with course c/b medication induced encephalopathy that has resolved. Plan 1. Right inferior pubic ramus fracture -Etiology remains unclear at this time -Patient noncompliant with cancer screenings, declines cancer screening -Pain control with scheduled Tylenol -Physical therapy for ambulation now that mentation has improved, doing well with them -May need rehab given that he is mostly independent with most things in the outpatient setting -AVOID narcotic/psychotropic pain meds given recent severe delirium 2. BRITTNY on CKD i/s/o NSAIDs, lisinopril and likely poor PO. Now back to baseline, resolved. -Baseline creatinine around 1.7 -On admission creatinine 1.9 and uptrended, now downtrending with hydration -s/p IVF. -holding Lasix and lisinopril -Nephrology consulted 3. Gout -No acute flares at this time -Continue Allopurinol 4. Hypertension -BP controlled -Continue with Toprol XL 5. BPH -Continue Tamsulosin 6. Constipation -Continue Senna and PRN Miralax 7. GERD -Continue Famotidine 8. Hypothyroidism -Continue levothyroxine 9. Acute encephalopathy on background history of Parkinson's i/s/o of new psychotropes. Resolved with stopping tramadol and zyprexa -DC'd olanzapine BID that was started inpatient, on 04/03 --> c/f being precipitant -Also dc'd tramadol on 04/03 -UA was with mild hematuria but otherwise bland -CXR without infiltrates -No leukocytosis -monitor daily CBC -Will refer back to neurol and psych at discharge for the Parkinson's and potential Parkinson's dementia 10. DVT ppx -Heparin subq Disposition: Now that renal function has improved, and encephalopathy has improved, is working with PT and doing well, pending final safe discharge recs. VS,Fishbone, I+O VS, Fishbone, I+O Laboratory Tests 04/08/20 07:15 Vital Signs Date Time Temp Pulse Resp B/P (MAP) Pulse Ox O2 Delivery O2 Flow Rate FiO2 04/08/20 06:00 96.1 78 19 168/84 (112) 94 Room Air I&O- Last 24 Hours up to 6 AM 04/08/20 06:00 Intake Total 615 ml Output Total 0 ml Balance 615 ml JULIAN LANIER MD Apr 08, 2020 09:08
[2020-04-08 14:00] VITALS: BP 151/82
[2020-04-08] MEDS: TAMSULOSIN 0.4 MG CAP PO SCH (21:15)
[2020-04-08] MEDS: SENNA 8.6 MG TAB (SENOKOT) PO SCH (21:15)
[2020-04-08 22:00] VITALS: BP 141/74
[2020-04-09] MEDS: LEVOTHYROXINE 100MCG TABLET (0.1MG) PO SCH (05:38)
[2020-04-09 06:00] VITALS: BP 142/72
[2020-04-09 06:41] LABS: HEMATOCRIT 36.7 % (42.0-52.0); HEMOGLOBIN 11.8 g/dl (13.5-17.5); MEAN CORPUSCULAR HEMOGLOBIN 30.1 pg (27.0-33.0); MEAN CORPUSCULAR HGB CONC 32.2 g/dl (32.0-36.5); MEAN CORPUSCULAR VOLUME 93.6 fl (80.0-96.0); PLATELET COUNT, AUTOMATED 157 10^3/uL (150-450); RED BLOOD COUNT 3.92 10^6/uL (4.30-6.10)
[2020-04-09 06:59] LABS: CALCIUM LEVEL 8.8 MG/DL (8.8-10.2); CREATININE FOR GFR 1.7 MG/DL (0.70-1.30); GLOMERULAR FILTRATION RATE 40.6 (>35); POTASSIUM SERUM 4.2 MEQ/L (3.5-5.1)
[2020-04-09] MEDS: FAMOTIDINE 20 MG TAB PO SCH ×2 (10:09→22:47)
[2020-04-09] MEDS: allopurinoL 300 MG TAB PO SCH (10:09)
[2020-04-09] MEDS: ACETAMINOPHEN 500 MG TAB PO SCH ×3 (10:10→22:48)
[2020-04-09] MEDS: MULTIVITAMINS/MINERALS THERAP 1 TAB PO SCH (10:11)
[2020-04-09] MEDS: METOPROLOL SUCC (TopROL XL) 100MG *XL* TAB PO SCH (10:11)
[2020-04-09] MEDS: HEPARIN SOD (PORCINE) 5000UNITS/ML 1ML VIAL/SYRINGE SC SCH ×2 (10:12→22:47)
[2020-04-09 14:00] VITALS: BP 141/77
--- NOTE | 2020-04-09 20:00 | IPNPDOC ---
Subjective Date Seen The patient was seen on 04/09/20. Subjective Chief Complaint/HPI Mr. García is a 89 year old male with gout, hypothyroidism, and CKD who is here for right hip pain and found to have a nondisplaced fracture of the inferior pubic ramus and BRITTNY secondary to NSAIDs. This morning, he was seen sleeping, but he was pleasant. Denies chest pain, dyspnea, abdominal pain, or dysuria. Objective Physical Examination General Exam: Positive: Alert, Cooperative, No Acute Distress Eye Exam: Positive: EOMI; Negative: Sclera icteric ENT Exam: Positive: Atraumatic, Tongue Midline Neck Exam: Positive: Supple Chest Exam: Positive: Clear to auscultation; Negative: Rales, Rhonchi, Wheezing Heart Exam: Positive: Rate Normal, Regular Rhythm Abdomen Exam: Positive: Normal bowel sounds, Soft; Negative: Tenderness Extremity Exam: Negative: Edema Neuro Exam: Positive: Normal Speech, Cranial Nerves 3-12 NL Psych Exam: Positive: Anxiety Assessment /Plan Assessment Mr. García is a 89 year old male with gout, hypothyroidism, and CKD who is here for right hip pain and found to have a nondisplaced fracture of the inferior pubic ramus and NSAID induced BRITTNY. BRITTNY has resolved. Otherwise, patient is pending rehab Plan/VTE VTE Prophylaxis Ordered?: Yes Plan 1. Right inferior pubic ramus fracture -Etiology remains unclear at this time -Patient noncompliant with cancer screenings, declines cancer screening -Pain control with scheduled Tylenol -Physical therapy for ambulation now that mentation has improved, doing well with them -May need rehab given that he is mostly independent with most things in the outpatient setting -Avoid narcotic/psychotropic pain meds given recent severe delirium 2. BRITTNY on CKD 2/2 NSAIDs, lisinopril, and poor PO intake -Baseline creatinine around 1.7 -On admission creatinine 1.9 and uptrended to a max of 2.53 -Nephrology was consulted. Recommendations appreciated -Did well with hydration, now off IVF -Continue to hold Lasix and lisinopril -Creatinine at baseline 3. Gout -No acute flares at this time -Continue Allopurinol 4. Hypertension -BP controlled -Continue with Toprol XL 5. BPH -Continue Tamsulosin 6. Constipation -Continue Senna and PRN Miralax 7. GERD -Continue Famotidine 8. Hypothyroidism -Continue levothyroxine 9. Acute encephalopathy on background history of Parkinson's 2/2 medications -Zyprexa and tramadol was discontinued -Follow up with neurology and psych outpatient on discharge for Parkinson's and potential Parkinson's dementia 10. DVT ppx -Heparin subq VS, I&O, 24H, Fishbone Vital Signs/I&O Vital Signs Date Time Temp Pulse Resp B/P (MAP) Pulse Ox O2 Delivery O2 Flow Rate FiO2 04/09/20 14:00 98.4 74 18 141/77 (98) 98 Room Air I&O- Last 24 Hours up to 6 AM 04/09/20 06:00 Intake Total 840 ml Output Total 0 ml Balance 840 ml Laboratory Data 24H LABS Laboratory Tests 2 04/09/20 06:29: Nucleated Red Blood Cells % (auto) 0.0, Anion Gap 7L, Glomerular Filtration Rate 40.6, Calcium Level 8.8 CBC/BMP Laboratory Tests 04/09/20 06:29 DEMETRIS ROGERS DO Apr 09, 2020 20:00
[2020-04-09 22:00] VITALS: BP 137/71
[2020-04-09] MEDS: TAMSULOSIN 0.4 MG CAP PO SCH (22:47)
[2020-04-09] MEDS: SENNA 8.6 MG TAB (SENOKOT) PO SCH (22:47)
[2020-04-10 06:00] VITALS: BP 128/63
[2020-04-10 06:07] LABS: HEMATOCRIT 38.1 % (42.0-52.0); HEMOGLOBIN 12.4 g/dl (13.5-17.5); MEAN CORPUSCULAR HEMOGLOBIN 31.2 pg (27.0-33.0); MEAN CORPUSCULAR HGB CONC 32.5 g/dl (32.0-36.5); PLATELET COUNT, AUTOMATED 162 10^3/uL (150-450); RED BLOOD COUNT 3.97 10^6/uL (4.30-6.10); WHITE BLOOD COUNT 7.7 10^3/uL (4.0-10.0)
[2020-04-10] MEDS: LEVOTHYROXINE 100MCG TABLET (0.1MG) PO SCH (06:07)
[2020-04-10 06:38] LABS: CALCIUM LEVEL 8.8 MG/DL (8.8-10.2); CREATININE FOR GFR 1.73 MG/DL (0.70-1.30); GLOMERULAR FILTRATION RATE 39.8 (>35)
[2020-04-10] MEDS: MULTIVITAMINS/MINERALS THERAP 1 TAB PO SCH (08:42)
[2020-04-10] MEDS: FAMOTIDINE 20 MG TAB PO SCH ×2 (08:43→20:35)
[2020-04-10] MEDS: allopurinoL 300 MG TAB PO SCH (08:43)
[2020-04-10] MEDS: ACETAMINOPHEN 500 MG TAB PO SCH ×3 (08:44→20:36)
[2020-04-10] MEDS: HEPARIN SOD (PORCINE) 5000UNITS/ML 1ML VIAL/SYRINGE SC SCH ×2 (08:45→20:35)
[2020-04-10] MEDS: METOPROLOL SUCC (TopROL XL) 100MG *XL* TAB PO SCH (08:45)
[2020-04-10 14:00] VITALS: BP 141/87
--- NOTE | 2020-04-10 16:25 | IPNPDOC ---
Subjective Date Seen The patient was seen on 04/10/20. Subjective Chief Complaint/HPI Mr. García is a 89 year old male with gout, hypothyroidism, and CKD who is here for right hip pain and found to have a nondisplaced fracture of the inferior pubic ramus and BRITTNY secondary to NSAIDs. This morning, he was seen sitting up at the side of the bed. Feels well. Denies fever, chest pain, dyspnea, or abdominal pain. Objective Physical Examination General Exam: Positive: Alert, Cooperative, No Acute Distress Eye Exam: Positive: EOMI; Negative: Sclera icteric ENT Exam: Positive: Atraumatic, Tongue Midline Neck Exam: Positive: Supple Chest Exam: Positive: Clear to auscultation; Negative: Rales, Rhonchi, Wheezing Heart Exam: Positive: Rate Normal, Regular Rhythm Abdomen Exam: Positive: Normal bowel sounds, Soft; Negative: Tenderness Extremity Exam: Negative: Edema Neuro Exam: Positive: Normal Speech, Cranial Nerves 3-12 NL Psych Exam: Positive: Anxiety Assessment /Plan Assessment Mr. García is a 89 year old male with gout, hypothyroidism, and CKD who is here for right hip pain and found to have a nondisplaced fracture of the inferior pubic ramus and NSAID induced BRITTNY. BRITTNY has resolved. Otherwise, patient is pending rehab. Anticipating ARU for tomorrow Plan/VTE VTE Prophylaxis Ordered?: Yes Plan 1. Right inferior pubic ramus fracture -Etiology remains unclear at this time -Patient noncompliant with cancer screenings, declines cancer screening -Pain control with scheduled Tylenol -Physical therapy for ambulation now that mentation has improved, doing well with them -Will need rehab given that he is mostly independent with most things in the outpatient setting -Avoid narcotic/psychotropic pain meds given recent severe delirium 2. BRITTNY on CKD 2/2 NSAIDs, lisinopril, and poor PO intake -Baseline creatinine around 1.7 -On admission creatinine 1.9 and uptrended to a max of 2.53 -Nephrology was consulted. Recommendations appreciated -Did well with hydration, now off IVF -Continue to hold Lasix and lisinopril -Creatinine at baseline 3. Gout -No acute flares at this time -Continue Allopurinol 4. Hypertension -BP controlled -Continue with Toprol XL 5. BPH -Continue Tamsulosin 6. Constipation -Continue Senna and PRN Miralax 7. GERD -Continue Famotidine 8. Hypothyroidism -Continue levothyroxine 9. Acute encephalopathy on background history of Parkinson's 2/2 medications -Zyprexa and tramadol was discontinued -Follow up with neurology and psych outpatient on discharge for Parkinson's and potential Parkinson's dementia 10. DVT ppx -Heparin subq Disposition: Anticipate discharge to ARU tomorrow VS, I&O, 24H, Fishbone Vital Signs/I&O Vital Signs Date Time Temp Pulse Resp B/P (MAP) Pulse Ox O2 Delivery O2 Flow Rate FiO2 04/10/20 14:00 98.1 59 18 141/87 (105) 97 Room Air I&O- Last 24 Hours up to 6 AM 04/10/20 06:00 Intake Total 360 ml Output Total 0 ml Balance 360 ml Laboratory Data 24H LABS Laboratory Tests 2 04/10/20 05:51: Nucleated Red Blood Cells % (auto) 0.0, Anion Gap 6L, Glomerular Filtration Rate 39.8, Calcium Level 8.8 CBC/BMP Laboratory Tests 04/10/20 05:51 DEMETRIS ROGERS DO Apr 10, 2020 16:25
[2020-04-10] MEDS: SENNA 8.6 MG TAB (SENOKOT) PO SCH (20:35)
[2020-04-10] MEDS: TAMSULOSIN 0.4 MG CAP PO SCH (20:35)
[2020-04-10 22:00] VITALS: BP 141/70
[2020-04-11 06:00] VITALS: BP 169/75
[2020-04-11 06:13] LABS: HEMATOCRIT 37.9 % (42.0-52.0); HEMOGLOBIN 12.3 g/dl (13.5-17.5); MEAN CORPUSCULAR HGB CONC 32.5 g/dl (32.0-36.5); MEAN CORPUSCULAR VOLUME 95.5 fl (80.0-96.0); PLATELET COUNT, AUTOMATED 169 10^3/uL (150-450); RED BLOOD COUNT 3.97 10^6/uL (4.30-6.10); WHITE BLOOD COUNT 7.6 10^3/uL (4.0-10.0)
[2020-04-11] MEDS: LEVOTHYROXINE 100MCG TABLET (0.1MG) PO SCH (06:32)
[2020-04-11 06:44] LABS: CALCIUM LEVEL 8.8 MG/DL (8.8-10.2); CREATININE FOR GFR 1.72 MG/DL (0.70-1.30); GLOMERULAR FILTRATION RATE 40.1 (>35); POTASSIUM SERUM 4.3 MEQ/L (3.5-5.1)
[2020-04-11] MEDS: METOPROLOL SUCC (TopROL XL) 100MG *XL* TAB PO SCH (07:24)
[2020-04-11] MEDS: FAMOTIDINE 20 MG TAB PO SCH ×2 (07:28→20:15)
[2020-04-11] MEDS: allopurinoL 300 MG TAB PO SCH (07:28)
[2020-04-11] MEDS: MULTIVITAMINS/MINERALS THERAP 1 TAB PO SCH (07:28)
[2020-04-11] MEDS: HEPARIN SOD (PORCINE) 5000UNITS/ML 1ML VIAL/SYRINGE SC SCH ×2 (07:29→20:16)
[2020-04-11] MEDS: ACETAMINOPHEN 500 MG TAB PO SCH ×3 (07:29→20:15)
[2020-04-11 14:00] VITALS: BP 149/74
[2020-04-11 20:12] VITALS: BP 138/78
[2020-04-11] MEDS: TAMSULOSIN 0.4 MG CAP PO SCH (20:15)
[2020-04-11] MEDS: SENNA 8.6 MG TAB (SENOKOT) PO SCH (20:15)
--- NOTE | 2020-04-11 21:15 | IPNPDOC ---
Subjective Date Seen The patient was seen on 04/11/20. Subjective Chief Complaint/HPI Mr. García is a 89 year old male with gout, hypothyroidism, and CKD who is here for right hip pain and found to have a nondisplaced fracture of the inferior pubic ramus and BRITTNY secondary to NSAIDs. This morning, he was seen sitting in the chair watching TV. Feels well. Denies fever, chest pain, dyspnea, or abdominal pain. Pending placement into ARU Objective Physical Examination General Exam: Positive: Alert, Cooperative, No Acute Distress Eye Exam: Positive: EOMI; Negative: Sclera icteric ENT Exam: Positive: Atraumatic, Tongue Midline Neck Exam: Positive: Supple Chest Exam: Positive: Clear to auscultation; Negative: Rales, Rhonchi, Wheezing Heart Exam: Positive: Rate Normal, Regular Rhythm Abdomen Exam: Positive: Normal bowel sounds, Soft; Negative: Tenderness Extremity Exam: Negative: Edema Neuro Exam: Positive: Normal Speech, Cranial Nerves 3-12 NL Psych Exam: Positive: Anxiety Assessment /Plan Assessment Mr. García is a 89 year old male with gout, hypothyroidism, and CKD who is here for right hip pain and found to have a nondisplaced fracture of the inferior pubic ramus and NSAID induced BRITTNY. BRITTNY has resolved. Otherwise, patient is pending placement into ARU. Plan/VTE VTE Prophylaxis Ordered?: Yes Plan 1. Right inferior pubic ramus fracture -Etiology remains unclear at this time -Patient noncompliant with cancer screenings, declines cancer screening -Pain control with scheduled Tylenol -Physical therapy for ambulation now that mentation has improved, doing well with them -Will need rehab given that he is mostly independent with most things in the outpatient setting -Avoid narcotic/psychotropic pain meds given recent severe delirium 2. BRITTNY on CKD 2/2 NSAIDs, lisinopril, and poor PO intake -Baseline creatinine around 1.7 -On admission creatinine 1.9 and uptrended to a max of 2.53 -Nephrology was consulted. Recommendations appreciated -Did well with hydration, now off IVF -Continue to hold Lasix and lisinopril -Creatinine at baseline 3. Gout -No acute flares at this time -Continue Allopurinol 4. Hypertension -BP controlled -Continue with Toprol XL 5. BPH -Continue Tamsulosin 6. Constipation -Continue Senna and PRN Miralax 7. GERD -Continue Famotidine 8. Hypothyroidism -Continue levothyroxine 9. Acute encephalopathy on background history of Parkinson's 2/2 medications -Zyprexa and tramadol was discontinued -Follow up with neurology and psych outpatient on discharge for Parkinson's and potential Parkinson's dementia 10. DVT ppx -Heparin subq Disposition: Pending placement into ARU VS, I&O, 24H, [place] Vital Signs/I&O Vital Signs Date Time Temp Pulse Resp B/P (MAP) Pulse Ox O2 Delivery O2 Flow Rate FiO2 04/11/20 20:12 97.9 63 20 138/78 (98) 97 Room Air I&O- Last 24 Hours up to 6 AM 04/11/20 05:59 Intake Total 950 ml Output Total 0 ml Balance 950 ml Laboratory Data 24H LABS Laboratory Tests 2 04/11/20 06:08: Nucleated Red Blood Cells % (auto) 0.0, Anion Gap 5L, Glomerular Filtration Rate 40.1, Calcium Level 8.8 CBC/BMP Laboratory Tests 04/11/20 06:08 DEMETRIS ROGERS DO Apr 11, 2020 21:15
[2020-04-12] MEDS: LEVOTHYROXINE 100MCG TABLET (0.1MG) PO SCH (05:49)
[2020-04-12 06:04] VITALS: BP 150/77
[2020-04-12] MEDS: MULTIVITAMINS/MINERALS THERAP 1 TAB PO SCH (09:25)
[2020-04-12] MEDS: FAMOTIDINE 20 MG TAB PO SCH ×2 (09:25→20:08)
[2020-04-12] MEDS: allopurinoL 300 MG TAB PO SCH (09:26)
[2020-04-12] MEDS: ACETAMINOPHEN 500 MG TAB PO SCH ×3 (09:26→20:08)
[2020-04-12] MEDS: METOPROLOL SUCC (TopROL XL) 100MG *XL* TAB PO SCH (09:26)
[2020-04-12] MEDS: HEPARIN SOD (PORCINE) 5000UNITS/ML 1ML VIAL/SYRINGE SC SCH ×2 (09:27→20:09)
[2020-04-12 09:48] LABS: HEMATOCRIT 39.6 % (42.0-52.0); HEMOGLOBIN 13.1 g/dl (13.5-17.5); MEAN CORPUSCULAR HEMOGLOBIN 31.3 pg (27.0-33.0); MEAN CORPUSCULAR HGB CONC 33.1 g/dl (32.0-36.5); MEAN CORPUSCULAR VOLUME 94.5 fl (80.0-96.0); PLATELET COUNT, AUTOMATED 170 10^3/uL (150-450); RED BLOOD COUNT 4.19 10^6/uL (4.30-6.10); WHITE BLOOD COUNT 6.4 10^3/uL (4.0-10.0)
[2020-04-12 10:17] LABS: CALCIUM LEVEL 8.8 MG/DL (8.8-10.2); CREATININE FOR GFR 1.49 MG/DL (0.70-1.30); GLOMERULAR FILTRATION RATE 47.3 (>35); POTASSIUM SERUM 4.4 MEQ/L (3.5-5.1)
[2020-04-12 14:00] VITALS: BP 128/65
--- NOTE | 2020-04-12 17:58 | IPNPDOC ---
Subjective Date Seen The patient was seen on 04/12/20. Subjective Chief Complaint/HPI Mr. García is a 89 year old male with gout, hypothyroidism, and CKD who is here for right hip pain and found to have a nondisplaced fracture of the inferior pubic ramus and BRITTNY secondary to NSAIDs. This morning, he was seen sitting up eating eggs. Denies fever, chest pain, dyspnea, or abdominal pain. Objective Physical Examination General Exam: Positive: Alert, Cooperative, No Acute Distress Eye Exam: Positive: EOMI; Negative: Sclera icteric ENT Exam: Positive: Atraumatic, Tongue Midline Neck Exam: Positive: Supple Chest Exam: Positive: Clear to auscultation; Negative: Rales, Rhonchi, Wheezing Heart Exam: Positive: Rate Normal, Regular Rhythm Abdomen Exam: Positive: Normal bowel sounds, Soft; Negative: Tenderness Extremity Exam: Negative: Edema Neuro Exam: Positive: Normal Speech, Cranial Nerves 3-12 NL Psych Exam: Positive: Anxiety Assessment /Plan Assessment Mr. García is a 89 year old male with gout, hypothyroidism, and CKD who is here for right hip pain and found to have a nondisplaced fracture of the inferior pubic ramus and NSAID induced BRITTNY. BRITTNY has resolved. Otherwise, patient is pending placement into ARU. Plan/VTE VTE Prophylaxis Ordered?: Yes Plan 1. Right inferior pubic ramus fracture -Etiology remains unclear at this time -Patient noncompliant with cancer screenings, declines cancer screening -Pain control with scheduled Tylenol -Physical therapy for ambulation now that mentation has improved, doing well with them -Will need rehab given that he is mostly independent with most things in the outpatient setting -Avoid narcotic/psychotropic pain meds given recent severe delirium 2. BRITTNY on CKD 2/2 NSAIDs, lisinopril, and poor PO intake -Baseline creatinine around 1.7 -On admission creatinine 1.9 and uptrended to a max of 2.53 -Nephrology was consulted. Recommendations appreciated -Did well with hydration, now off IVF -Continue to hold Lasix and lisinopril -Creatinine at baseline 3. Gout -No acute flares at this time -Continue Allopurinol 4. Hypertension -BP controlled -Continue with Toprol XL 5. BPH -Continue Tamsulosin 6. Constipation -Continue Senna and PRN Miralax 7. GERD -Continue Famotidine 8. Hypothyroidism -Continue levothyroxine 9. Acute encephalopathy on background history of Parkinson's 2/2 medications -Zyprexa and tramadol was discontinued -Follow up with neurology and psych outpatient on discharge for Parkinson's and potential Parkinson's dementia 10. DVT ppx -Heparin subq Disposition: Pending placement into ARU. Follow up with neurology and psych outpatient on discharge for Parkinson's and potential Parkinson's dementia VS, [facility]&O, [facility] Vital Signs/I&O Vital Signs Date Time Temp Pulse Resp B/P (MAP) Pulse Ox O2 Delivery O2 Flow Rate FiO2 04/12/20 14:00 97.3 58 14 128/65 (86) 95 Room Air I&O- Last 24 Hours up to 6 AM 04/12/20 06:00 Intake Total 1420 ml Balance 1420 ml Laboratory Data 24H LABS Laboratory Tests 2 04/12/20 09:37: Nucleated Red Blood Cells % (auto) 0.0, Anion Gap 4L, Glomerular Filtration Rate 47.3, Calcium Level 8.8 CBC/BMP Laboratory Tests 04/12/20 09:37 DEMETRIS ROGERS DO Apr 12, 2020 17:57
[2020-04-12 20:00] VITALS: BP 152/75
[2020-04-12] MEDS: TAMSULOSIN 0.4 MG CAP PO SCH (20:08)
[2020-04-12] MEDS: SENNA 8.6 MG TAB (SENOKOT) PO SCH (20:09)
[2020-04-13 05:40] VITALS: BP 149/72
[2020-04-13] MEDS: LEVOTHYROXINE 100MCG TABLET (0.1MG) PO SCH (05:56)
[2020-04-13] MEDS: METOPROLOL SUCC (TopROL XL) 100MG *XL* TAB PO SCH (09:00)
[2020-04-13 09:09] LABS: HEMATOCRIT 38.3 % (42.0-52.0); HEMOGLOBIN 12.2 g/dl (13.5-17.5); MEAN CORPUSCULAR HGB CONC 31.9 g/dl (32.0-36.5); MEAN CORPUSCULAR VOLUME 94.3 fl (80.0-96.0); PLATELET COUNT, AUTOMATED 196 10^3/uL (150-450); RED BLOOD COUNT 4.06 10^6/uL (4.30-6.10); WHITE BLOOD COUNT 6.9 10^3/uL (4.0-10.0)
[2020-04-13 09:29] LABS: CREATININE FOR GFR 1.65 MG/DL (0.70-1.30); POTASSIUM SERUM 4.5 MEQ/L (3.5-5.1)
[2020-04-13] MEDS: MULTIVITAMINS/MINERALS THERAP 1 TAB PO SCH (09:47)
[2020-04-13] MEDS: FAMOTIDINE 20 MG TAB PO SCH ×2 (09:47→20:43)
[2020-04-13] MEDS: HEPARIN SOD (PORCINE) 5000UNITS/ML 1ML VIAL/SYRINGE SC SCH ×2 (09:47→20:46)
[2020-04-13] MEDS: allopurinoL 300 MG TAB PO SCH (09:48)
[2020-04-13] MEDS: ACETAMINOPHEN 500 MG TAB PO SCH ×3 (09:48→20:44)
--- NOTE | 2020-04-13 13:39 | IPNPDOC ---
Subjective Date Seen The patient was seen on 04/13/20. Subjective Chief Complaint/HPI Mr. García is a 89 year old male with gout, hypothyroidism, and CKD who is here for right hip pain and found to have a nondisplaced fracture of the inferior pubic ramus and BRITTNY secondary to NSAIDs. This morning, he was seen in bed. He feels well. Denies pain or shortness of breath. Waiting for ARU placement Objective Physical Examination General Exam: Positive: Alert, Cooperative, No Acute Distress Eye Exam: Positive: EOMI; Negative: Sclera icteric ENT Exam: Positive: Atraumatic, Tongue Midline Neck Exam: Positive: Supple Chest Exam: Positive: Clear to auscultation; Negative: Rales, Rhonchi, Wheezing Heart Exam: Positive: Rate Normal, Regular Rhythm Abdomen Exam: Positive: Normal bowel sounds, Soft; Negative: Tenderness Extremity Exam: Negative: Edema Neuro Exam: Positive: Normal Speech, Cranial Nerves 3-12 NL Psych Exam: Positive: Anxiety Assessment /Plan Assessment Mr. García is a 89 year old male with gout, hypothyroidism, and CKD who is here for right hip pain and found to have a nondisplaced fracture of the inferior pubic ramus and NSAID induced BRITTNY. BRITTNY has resolved. Otherwise, patient is pending placement into ARU. Plan/VTE VTE Prophylaxis Ordered?: Yes Plan 1. Right inferior pubic ramus fracture -Etiology remains unclear at this time -Patient noncompliant with cancer screenings, declines cancer screening -Pain control with scheduled Tylenol -Physical therapy for ambulation now that mentation has improved, doing well with them -Will need rehab given that he is mostly independent with most things in the outpatient setting -Avoid narcotic/psychotropic pain meds given recent severe delirium 2. BRITTNY on CKD 2/2 NSAIDs, lisinopril, and poor PO intake -Baseline creatinine around 1.7 -On admission creatinine 1.9 and uptrended to a max of 2.53 -Nephrology was consulted. Recommendations appreciated -Did well with hydration, now off IVF -Continue to hold Lasix and lisinopril -Creatinine at baseline 3. Gout -No acute flares at this time -Continue Allopurinol 4. Hypertension -BP controlled -Continue with Toprol XL 5. BPH -Continue Tamsulosin 6. Constipation -Continue Senna and PRN Miralax 7. GERD -Continue Famotidine 8. Hypothyroidism -Continue levothyroxine 9. Acute encephalopathy on background history of Parkinson's 2/2 medications -Zyprexa and tramadol was discontinued -Follow up with neurology and psych outpatient on discharge for Parkinson's and potential Parkinson's dementia 10. DVT ppx -Heparin subq Disposition: Pending placement into ARU. Follow up with neurology and psych outpatient on discharge for Parkinson's and potential Parkinson's dementia VS, I&O, 24H, Fishbone Vital Signs/I&O Vital Signs Date Time Temp Pulse Resp B/P (MAP) Pulse Ox O2 Delivery O2 Flow Rate FiO2 04/13/20 09:00 53 149/79 04/13/20 05:40 97.8 20 99 Room Air I&O- Last 24 Hours up to 6 AM 04/13/20 05:59 Intake Total 1590 ml Balance 1590 ml Laboratory Data 24H LABS Laboratory Tests 2 04/13/20 08:48: Nucleated Red Blood Cells % (auto) 0.0, Anion Gap 7L, Glomerular Filtration Rate 42.0, Calcium Level 9.0 CBC/BMP Laboratory Tests 04/13/20 08:48 DEMETRIS ROGERS DO Apr 13, 2020 13:39
[2020-04-13 14:00] VITALS: BP 139/80
[2020-04-13] MEDS ORDERED: MAALOX 30 ML SUSP *UDC PO PRN (16:45)
[2020-04-13 20:09] VITALS: BP 165/76
[2020-04-13] MEDS: SENNA 8.6 MG TAB (SENOKOT) PO SCH (20:43)
[2020-04-13] MEDS: TAMSULOSIN 0.4 MG CAP PO SCH (20:43)
[2020-04-14 05:37] VITALS: BP 167/82
[2020-04-14] MEDS: LEVOTHYROXINE 100MCG TABLET (0.1MG) PO SCH (05:39)
[2020-04-14 07:55] LABS: HEMATOCRIT 39.4 % (42.0-52.0); HEMOGLOBIN 12.5 g/dl (13.5-17.5); MEAN CORPUSCULAR HEMOGLOBIN 30.3 pg (27.0-33.0); MEAN CORPUSCULAR HGB CONC 31.7 g/dl (32.0-36.5); MEAN CORPUSCULAR VOLUME 95.6 fl (80.0-96.0); PLATELET COUNT, AUTOMATED 187 10^3/uL (150-450); RED BLOOD COUNT 4.12 10^6/uL (4.30-6.10); WHITE BLOOD COUNT 7.7 10^3/uL (4.0-10.0)
[2020-04-14 08:25] LABS: CALCIUM LEVEL 9.2 MG/DL (8.8-10.2); CREATININE FOR GFR 1.77 MG/DL (0.70-1.30); GLOMERULAR FILTRATION RATE 38.8 (>35); POTASSIUM SERUM 4.3 MEQ/L (3.5-5.1)
[2020-04-14] MEDS: FAMOTIDINE 20 MG TAB PO SCH ×2 (10:43→21:22)
[2020-04-14] MEDS: MULTIVITAMINS/MINERALS THERAP 1 TAB PO SCH (10:43)
[2020-04-14] MEDS: METOPROLOL SUCC (TopROL XL) 100MG *XL* TAB PO SCH (10:44)
[2020-04-14] MEDS: allopurinoL 300 MG TAB PO SCH (10:44)
[2020-04-14] MEDS: ACETAMINOPHEN 500 MG TAB PO SCH ×3 (10:44→21:22)
[2020-04-14] MEDS: HEPARIN SOD (PORCINE) 5000UNITS/ML 1ML VIAL/SYRINGE SC SCH ×2 (10:45→21:22)
--- NOTE | 2020-04-14 20:50 | IPNPDOC ---
Subjective Date Seen The patient was seen on 04/14/20. Subjective Chief Complaint/HPI Mr. García is a 89 year old male with gout, hypothyroidism, and CKD who is here for right hip pain and found to have a nondisplaced fracture of the inferior pubic ramus and BRITTNY secondary to NSAIDs. This morning he was seen resting in bed. Denies any chest pain, abdominal pain, short as of breath. Waiting for ARU placement Objective Physical Examination General Exam: Positive: Alert, Cooperative, No Acute Distress Eye Exam: Positive: EOMI; Negative: Sclera icteric ENT Exam: Positive: Atraumatic, Tongue Midline Neck Exam: Positive: Supple Chest Exam: Positive: Clear to auscultation; Negative: Rales, Rhonchi, Wheezing Heart Exam: Positive: Rate Normal, Regular Rhythm Abdomen Exam: Positive: Normal bowel sounds, Soft; Negative: Tenderness Extremity Exam: Negative: Edema Neuro Exam: Positive: Normal Speech, Cranial Nerves 3-12 NL Psych Exam: Positive: Anxiety Assessment /Plan Assessment Mr. García is a 89 year old male with gout, hypothyroidism, and CKD who is here for right hip pain and found to have a nondisplaced fracture of the inferior pubic ramus and NSAID induced BRITTNY. BRITTNY has resolved. Otherwise, patient is pending placement into ARU. Plan/VTE VTE Prophylaxis Ordered?: Yes Plan 1. Right inferior pubic ramus fracture -Etiology remains unclear at this time -Patient noncompliant with cancer screenings, declines cancer screening -Pain control with scheduled Tylenol -Physical therapy for ambulation now that mentation has improved, doing well with them -Will need rehab given that he is mostly independent with most things in the outpatient setting -Avoid narcotic/psychotropic pain meds given recent severe delirium 2. BRITTNY on CKD 2/2 NSAIDs, lisinopril, and poor PO intake -Baseline creatinine around 1.7 -On admission creatinine 1.9 and uptrended to a max of 2.53 -Nephrology was consulted. Recommendations appreciated -Did well with hydration, now off IVF -Continue to hold Lasix and lisinopril -Creatinine at baseline 3. Gout -No acute flares at this time -Continue Allopurinol 4. Hypertension -BP controlled -Continue with Toprol XL 5. BPH -Continue Tamsulosin 6. Constipation -Continue Senna and PRN Miralax 7. GERD -Continue Famotidine 8. Hypothyroidism -Continue levothyroxine 9. Acute encephalopathy on background history of Parkinson's 2/2 medications -Zyprexa and tramadol was discontinued -Follow up with neurology and psych outpatient on discharge for Parkinson's and potential Parkinson's dementia 10. DVT ppx -Heparin subq Disposition: Pending placement into ARU. Follow up with neurology and psych outpatient on discharge for Parkinson's and potential Parkinson's dementia VS, I&O, 24H, Fishbone Vital Signs/I&O Vital Signs Date Time Temp Pulse Resp B/P (MAP) Pulse Ox O2 Delivery O2 Flow Rate FiO2 04/14/20 10:44 69 167/82 04/14/20 05:37 98.3 18 94 Room Air I&O- Last 24 Hours up to 6 AM 04/14/20 05:59 Intake Total 680 ml Output Total 300 ml Balance 380 ml Laboratory Data 24H LABS Laboratory Tests 2 04/14/20 07:38: Nucleated Red Blood Cells % (auto) 0.0, Anion Gap 5L, Glomerular Filtration Rate 38.8, Calcium Level 9.2 CBC/BMP Laboratory Tests 04/14/20 07:38 DEMETRIS ROGERS DO Apr 14, 2020 20:49
[2020-04-14] MEDS: TAMSULOSIN 0.4 MG CAP PO SCH (21:22)
[2020-04-14] MEDS: SENNA 8.6 MG TAB (SENOKOT) PO SCH (21:22)
[2020-04-14 22:00] VITALS: BP 141/68
[2020-04-15] MEDS: LEVOTHYROXINE 100MCG TABLET (0.1MG) PO SCH (05:56)
[2020-04-15 05:58] LABS: HEMATOCRIT 41.1 % (42.0-52.0); HEMOGLOBIN 12.9 g/dl (13.5-17.5); MEAN CORPUSCULAR HEMOGLOBIN 29.9 pg (27.0-33.0); MEAN CORPUSCULAR HGB CONC 31.4 g/dl (32.0-36.5); MEAN CORPUSCULAR VOLUME 95.1 fl (80.0-96.0); PLATELET COUNT, AUTOMATED 206 10^3/uL (150-450); RED BLOOD COUNT 4.32 10^6/uL (4.30-6.10); WHITE BLOOD COUNT 8.5 10^3/uL (4.0-10.0)
[2020-04-15 06:00] VITALS: BP 163/99
[2020-04-15 06:25] LABS: CALCIUM LEVEL 9.1 MG/DL (8.8-10.2); CREATININE FOR GFR 2.03 MG/DL (0.70-1.30); GLOMERULAR FILTRATION RATE 33.1 (>35); POTASSIUM SERUM 4.7 MEQ/L (3.5-5.1)
[2020-04-15] MEDS: allopurinoL 300 MG TAB PO SCH (08:23)
[2020-04-15] MEDS: HEPARIN SOD (PORCINE) 5000UNITS/ML 1ML VIAL/SYRINGE SC SCH ×2 (08:23→21:00)
[2020-04-15] MEDS: FAMOTIDINE 20 MG TAB PO SCH (08:23)
[2020-04-15] MEDS: ACETAMINOPHEN 500 MG TAB PO SCH ×3 (08:25→21:00)
[2020-04-15] MEDS: METOPROLOL SUCC (TopROL XL) 100MG *XL* TAB PO SCH (08:26)
[2020-04-15] MEDS: MULTIVITAMINS/MINERALS THERAP 1 TAB PO SCH (08:26)
[2020-04-15] MEDS: NS 1,000 ML IV SCH ×2 (08:37→19:53)
--- NOTE | 2020-04-15 12:07 | IPNPDOC ---
Subjective Date Seen The patient was seen on 04/15/20. Subjective Chief Complaint/HPI Mr. García is a 89 year old male with gout, hypothyroidism, and CKD who is here for right hip pain and found to have a nondisplaced fracture of the inferior pubic ramus and BRITTNY secondary to NSAIDs. Lab work this morning demonstrates BRITTNY, will restart on fluids. Hopefully can be discontinued tomorrow. Otherwise, patient reports that Pepcid is causing him dyspepsia. Denies chest pain or dyspnea. Objective Physical Examination General Exam: Positive: Alert, Cooperative, No Acute Distress Eye Exam: Positive: EOMI; Negative: Sclera icteric ENT Exam: Positive: Atraumatic, Tongue Midline Neck Exam: Positive: Supple Chest Exam: Positive: Clear to auscultation; Negative: Rales, Rhonchi, Wheezing Heart Exam: Positive: Rate Normal, Regular Rhythm Abdomen Exam: Positive: Normal bowel sounds, Soft; Negative: Tenderness Extremity Exam: Negative: Edema Neuro Exam: Positive: Normal Speech, Cranial Nerves 3-12 NL Psych Exam: Positive: Anxiety Assessment /Plan Assessment Mr. García is a 89 year old male with gout, hypothyroidism, and CKD who is here for right hip pain and found to have a nondisplaced fracture of the inferior pubic ramus and NSAID induced BRITTNY. BRITTNY has resolved and then reoccurred on 04/15/2020. Restart IV fluids. Will need to be off of IV fluids for rehab. ARU declined, will need to find rehab elsewhere. Plan/VTE VTE Prophylaxis Ordered?: Yes Plan 1. Right inferior pubic ramus fracture -Etiology remains unclear at this time -Patient noncompliant with cancer screenings, declines cancer screening -Pain control with scheduled Tylenol -Physical therapy for ambulation now that mentation has improved, doing well with them -Will need rehab given that he is mostly independent with most things in the outpatient setting -Avoid narcotic/psychotropic pain meds given recent severe delirium 2. BRITTNY on CKD 2/2 NSAIDs, lisinopril, and poor PO intake -Baseline creatinine around 1.7 -On admission creatinine 1.9 and uptrended to a max of 2.53 -Nephrology was consulted. Recommendations appreciated -Did well with hydration, now off IVF -Continue to hold Lasix and lisinopril -Developed BRITTNY again. On IVF 3. Gout -No acute flares at this time -Continue Allopurinol 4. Hypertension -BP controlled -Continue with Toprol XL 5. BPH -Continue Tamsulosin 6. Constipation -Continue Senna and PRN Miralax 7. GERD -Switched famotidine to omeprazole 8. Hypothyroidism -Continue levothyroxine 9. Acute encephalopathy on background history of Parkinson's 2/2 medications -Zyprexa and tramadol was discontinued -Follow up with neurology and psych outpatient on discharge for Parkinson's and potential Parkinson's dementia 10. DVT ppx -Heparin subq Disposition: Pending placement into rehab (ARU declined). Follow up with neurology and psych outpatient on discharge for Parkinson's and potential Parkinson's dementia [facility]/I[facility]O Vital Signs Date Time Temp Pulse Resp B/P (MAP) Pulse Ox O2 Delivery O2 Flow Rate FiO2 04/15/20 08:26 66 143/72 04/15/20 06:00 98.8 16 94 Room Air I&O- Last 24 Hours up to 6 AM 04/15/20 05:59 Intake Total 1320 ml Balance 1320 ml Laboratory Data 24H LABS Laboratory Tests 2 04/15/20 05:47: Nucleated Red Blood Cells % (auto) 0.0, Anion Gap 6L, Glomerular Filtration Rate 33.1L, Calcium Level 9.1 CBC/BMP Laboratory Tests 04/15/20 05:47 DEMETRIS ROGERS DO Apr 15, 2020 12:07
[2020-04-15] MEDS: OMEPRAZOLE 20 MG CAP PO SCH (12:59)
[2020-04-15 14:00] VITALS: BP 140/71
[2020-04-15] MEDS: SENNA 8.6 MG TAB (SENOKOT) PO SCH (21:00)
[2020-04-15] MEDS: TAMSULOSIN 0.4 MG CAP PO SCH (21:00)
[2020-04-15 22:00] VITALS: BP 152/72
[2020-04-16 06:00] VITALS: BP 167/85
[2020-04-16] MEDS: NS 1,000 ML IV SCH (06:44)
[2020-04-16] MEDS: LEVOTHYROXINE 100MCG TABLET (0.1MG) PO SCH (06:44)
[2020-04-16] MEDS: ACETAMINOPHEN 500 MG TAB PO SCH ×3 (08:06→21:55)
[2020-04-16] MEDS: HEPARIN SOD (PORCINE) 5000UNITS/ML 1ML VIAL/SYRINGE SC SCH ×2 (08:06→21:54)
[2020-04-16] MEDS: METOPROLOL SUCC (TopROL XL) 100MG *XL* TAB PO SCH (08:07)
[2020-04-16] MEDS: OMEPRAZOLE 20 MG CAP PO SCH (08:09)
[2020-04-16] MEDS: allopurinoL 300 MG TAB PO SCH (08:09)
[2020-04-16] MEDS: MULTIVITAMINS/MINERALS THERAP 1 TAB PO SCH (08:09)
[2020-04-16 10:24] LABS: HEMOGLOBIN 13.1 g/dl (13.5-17.5); MEAN CORPUSCULAR HEMOGLOBIN 30.9 pg (27.0-33.0); MEAN CORPUSCULAR VOLUME 96.7 fl (80.0-96.0); PLATELET COUNT, AUTOMATED 220 10^3/uL (150-450); RED BLOOD COUNT 4.24 10^6/uL (4.30-6.10); WHITE BLOOD COUNT 8.5 10^3/uL (4.0-10.0)
[2020-04-16 10:46] LABS: CREATININE FOR GFR 1.76 MG/DL (0.70-1.30); POTASSIUM SERUM 4.4 MEQ/L (3.5-5.1)
[2020-04-16 14:00] VITALS: BP 125/66
[2020-04-16] MEDS: MIRALAX *UNIT DOSE* 17GM PACKET PO PRN (14:30)
--- NOTE | 2020-04-16 15:39 | IPNPDOC ---
Text Note Date of Service The patient was seen on 04/16/20. NOTE Subjective: No any acute events overnight Objective: GENERAL APPEARANCE: NAD HEENT: no scleral icterus, no JVD, EOMI CARDIOVASCULAR: S1S2 LUNGS: CTA ABDOMEN: soft & not tender w palpitation MUSCULOSKELETAL: no cyanosis, no swelling INTEGUMENT: no generalized palor NEUROLOGICAL: cranial nerve function from 2-12 intact intact, follows commands, speech not dysarthric, resting hands tremor Assessment Mr. García is a 89 year old male with gout, hypothyroidism, and CKD who is here for right hip pain and found to have a nondisplaced fracture of the inferior pubic ramus and NSAID induced BRITTNY. BRITTNY has resolved and then reoccurred on 04/15/2020. Restart IV fluids. Will need to be off of IV fluids for rehab. ARU declined, will need to find rehab elsewhere. Plan 1. Right inferior pubic ramus fracture PT/OT 2. BRITTNY on CKD 2/2 NSAIDs, lisinopril, and poor PO intake Resolved, kidney function at baseline 3. Gout -No acute flares at this time -Continue Allopurinol 4. Hypertension -BP controlled -Continue with Toprol XL 5. BPH -Continue Tamsulosin 6. Constipation -Continue Senna and PRN Miralax 7. GERD Continue PPI 8. Hypothyroidism -Continue levothyroxine 9. Acute encephalopathy on background history of Parkinson's 2/2 medications Resolved -Follow up with neurology and psych outpatient on discharge for Parkinson's and potential Parkinson's dementia 10. DVT ppx -Heparin subq Osteoporosis/osteopenia Vitamin D, calcium supplementation, alendronate VS,Fishbone, I+O VS, Fishbone, I+O Laboratory Tests 04/16/20 09:48 Vital Signs Date Time Temp Pulse Resp B/P (MAP) Pulse Ox O2 Delivery O2 Flow Rate FiO2 04/16/20 14:00 97.8 55 18 125/66 (85) 96 Room Air I&O- Last 24 Hours up to 6 AM 04/16/20 06:00 Intake Total 970 ml Balance 970 ml ANTOLIN ESPINOZA DO Apr 16, 2020 15:39
[2020-04-16] MEDS ORDERED: MAGNESIUM CITRATE 300 ML BTL PO ONE (16:45)
[2020-04-16] MEDS: SENNA 8.6 MG TAB (SENOKOT) PO SCH (21:54)
[2020-04-16] MEDS: TAMSULOSIN 0.4 MG CAP PO SCH (21:54)
[2020-04-16] MEDS: CALCIUM/VITAMIN D 500 MG TAB PO SCH (21:54)
[2020-04-17 06:00] VITALS: BP 136/73
[2020-04-17] MEDS ORDERED: ALENDRONATE 35MG TABLET PO SCH (06:00)
[2020-04-17] MEDS: LEVOTHYROXINE 100MCG TABLET (0.1MG) PO SCH (06:45)
[2020-04-17 07:19] LABS: HEMATOCRIT 37.5 % (42.0-52.0); HEMOGLOBIN 12.2 g/dl (13.5-17.5); MEAN CORPUSCULAR HGB CONC 32.5 g/dl (32.0-36.5); MEAN CORPUSCULAR VOLUME 95.4 fl (80.0-96.0); PLATELET COUNT, AUTOMATED 186 10^3/uL (150-450); RED BLOOD COUNT 3.93 10^6/uL (4.30-6.10); WHITE BLOOD COUNT 7.9 10^3/uL (4.0-10.0)
[2020-04-17 07:43] LABS: CALCIUM LEVEL 9.5 MG/DL (8.8-10.2); CREATININE FOR GFR 1.54 MG/DL (0.70-1.30); GLOMERULAR FILTRATION RATE 45.5 (>35); POTASSIUM SERUM 4.3 MEQ/L (3.5-5.1)
[2020-04-17] MEDS: OMEPRAZOLE 20 MG CAP PO SCH (08:15)
[2020-04-17] MEDS: MULTIVITAMINS/MINERALS THERAP 1 TAB PO SCH (08:15)
[2020-04-17 08:16] VITALS: BP 136/73
[2020-04-17] MEDS: CALCIUM/VITAMIN D 500 MG TAB PO SCH (08:16)
[2020-04-17] MEDS: allopurinoL 300 MG TAB PO SCH (08:16)
[2020-04-17] MEDS: METOPROLOL SUCC (TopROL XL) 100MG *XL* TAB PO SCH (08:16)
[2020-04-17] MEDS: HEPARIN SOD (PORCINE) 5000UNITS/ML 1ML VIAL/SYRINGE SC SCH (08:17)
[2020-04-17] MEDS: ACETAMINOPHEN 500 MG TAB PO SCH (08:17)
[2020-04-17] MEDS ORDERED: amLODIPine 10 MG TAB PO SCH (09:00)
--- NOTE | 2020-04-17 15:57 | DS.PDOC ---
Discharge Summary General Date of Admission Mar 30, 2020 at 15:31 Date of Discharge 04/17/20 Discharge Summary PROCEDURES PERFORMED DURING STAY: [None]. ADMITTING DIAGNOSES: Right inferior pubic ramus fracture BRITTNY on CKD Gout Hypertension BPH Constipation GERD Hypothyroidism Acute encephalopathy history of Parkinson Osteoporosis/osteopenia DISCHARGE DIAGNOSES: Right inferior pubic ramus fracture BRITTNY on CKD Gout Hypertension BPH Constipation GERD Hypothyroidism Acute encephalopathy history of Parkinson Osteoporosis/osteopenia COMPLICATIONS/CHIEF COMPLAINT: Closed Fracture Of Inferior Pubic Ramus,Inadequate. HISTORY OF PRESENT ILLNESS: Mr. García is a 89 year old male with gout, hypothyroidism, and CKD who is here for right hip pain and found to have a nondisplaced fracture of the inferior pubic ramus and NSAID induced BRITTNY. BRITTNY has resolved and then reoccurred on 04/15/2020. Restart IV fluids. Will need to be off of IV fluids for rehab. ARU declined, will need to find rehab elsewhere. HOSPITAL COURSE: During hospital course following issue addressed 1. Right inferior pubic ramus fracture PT/OT 2. BRITTNY on CKD 2/2 NSAIDs, lisinopril, and poor PO intake Resolved, kidney function at baseline 3. Gout -No acute flares at this time -Continue Allopurinol 4. Hypertension -BP controlled -Continue with Toprol XL 5. BPH -Continue Tamsulosin 6. Constipation Senna and PRN Miralax 7. GERD Continue PPI 8. Hypothyroidism -Continue levothyroxine 9. Acute encephalopathy on background history of Parkinson's 2/2 medications Resolved -Follow up with neurology and psych outpatient on discharge for Parkinson's and potential Parkinson's dementia 10. DVT ppx -Heparin subq Osteoporosis/osteopenia Vitamin D, calcium supplementation, alendronate DISCHARGE MEDICATIONS: Please see below. ALLERGIES: Please see below. PHYSICAL EXAMINATION ON DISCHARGE: VITAL SIGNS: Please see below. GENERAL APPEARANCE: NAD HEENT: no scleral icterus, no JVD, EOMI CARDIOVASCULAR: S1S2 LUNGS: CTA ABDOMEN: soft & not tender w palpitation MUSCULOSKELETAL: no cyanosis, no swelling INTEGUMENT: no generalized palor NEUROLOGICAL: cranial nerve function from 2-12 intact intact, follows commands, speech not dysarthric, resting hands tremor LABORATORY DATA: Please see below. IMAGING: [facility] NAME: DANETTE GARCÍA DATE OF : 1930 AGE: 89 SEX: M REPORT #: [id number] ROOM: ED TECHNOLOGIST: REILLY DOCTOR: RONEL RIVERA SELF [employer]ED [employer] OPERATOR Ordered for Date&Time: 03/30/201314 cc: [~ rep ct ivnm] Service Date&Time: 03/30/201318 This report is in Signed status. If this report is in a DRAFT status it has not yet been reviewed by the radiologist for accuracy. Thank you for having your radiology procedures performed at [facility] RADIOLOGY REPORT Date&Time printed: [~ rep prt dt last] [~ rep prt tm last] Page 2 of 2 [id number] [id number] RADIOLOGY REPORT This report is in Signed status. If this report is in a DRAFT status it has not yet been reviewed by the radiologist for accuracy. Thank you for having your radiology procedures performed at [facility] RADIOLOGY REPORT Date&Time printed: [~ rep prt dt last] [~ rep prt tm last] Page 1 of 1 COMPARISON: None. TECHNIQUE: Axial noncontrast images through the right hip with coronal and sagittal reformations. FINDINGS: Extensive osteopenia and moderate arthritic degenerative changes are appreciated. There is an acute nondisplaced fracture of the inferior pubic ramus with a somewhat central possibly blastic soft tissue component raising the possibility of pathologic fracture. Correlation with underlying history of malignancy may be warranted. No further acute fracture to the visualized osseous structures noted. Surrounding soft tissues and musculature appear relatively age-appropriate. No hematoma or soft tissue injury noted. IMPRESSION: 1. Nondisplaced fracture of the inferior pubic ramus having a somewhat central soft tissue component raising the possibility of pathologic fracture and correlation with underlying history of malignancy may be warranted. <Electronically signed by Dev Carlos > 03/30/201335 DD: Dev Carlos MD 03/30/201329 DT: KAITLIN 03/30/201335 DS: TAMEKA 03/30/20132903/30/201329 [~ rep ct labl] PROGNOSIS: Fair ACTIVITY: [As tolerated]. DIET: Regular DISPOSITION: 70 Xfer Other. ITEMS TO FOLLOWUP ON ON OUTPATIENT: Follow-up with neurologist, PCP DISCHARGE CONDITION: [Stable]. TIME SPENT ON DISCHARGE: Greater than 40 minutes. Vital Signs/I&Os Vital Signs Date Time Temp Pulse Resp B/P (MAP) Pulse Ox O2 Delivery O2 Flow Rate FiO2 04/17/20 08:16 62 136/73 04/17/20 06:00 98.0 15 95 Room Air I&O- Last 24 Hours up to 6 AM 04/17/20 06:00 Intake Total 1650 ml Output Total 0 ml Balance 1650 ml Laboratory Data Labs 24H Laboratory Tests 2 04/17/20 06:55: Nucleated Red Blood Cells % (auto) 0.0, Anion Gap 3L, Glomerular Filtration Rate 45.5, Calcium Level 9.5 04/17/20 08:59: Coronavirus (COVID-19)(PCR) NEGATIVE CBC/BMP Laboratory Tests 04/17/20 06:55 Discharge Medications Scheduled Allopurinol (Zyloprim) 300 Mg Tab, 300 MG PO DAILY, (Reported) Doxazosin Mesylate (Doxazosin) 2 Mg Tab, 2 MG PO DAILY, (Reported) Famotidine (Pepcid) 20 Mg Tablet, 20 MG PO BID, (Reported) Levothyroxine Sodium (Levoxyl) 100 Mcg Tab, 100 MCG PO DAILY, (Reported) Lisinopril (Lisinopril) 5 Mg Tab, 5 MG PO DAILY, (Reported) Metoprolol Succinate (Metoprolol Succinate) 100 Mg Tab, 100 MG PO DAILY, (Reported) Multivitamins (Thera M Plus Tablet) 1 Tab Tab, 1 TAB PO DAILY, (Reported) Sennosides (Senna Lax) 8.6 Mg Tablet, 8.6 MG PO QHS, (Reported) Tamsulosin HCl (Flomax) 0.4 Mg Cap, 0.4 MG PO QHS, (Reported) Scheduled PRN Furosemide (Lasix) 20 Mg Tab, 20 MG PO DAILY PRN for EDEMA, (Reported) Polyethylene Glycol 3350 (Miralax) 1 Pow Pow, 17 GM PO DAILY PRN for CONST IPATION, (Reported) Allergies Coded Allergies: amlodipine (Verified Adverse Reaction, Mild, DIZZY, 03/30/20) ANTOLIN ESPINOZA DO Apr 17, 2020 15:57
[2020-04-17] MEDS ORDERED: FOSA70TA3 PO (16:00)
== END 2020-04-17 10:40 | disposition other institution (70) | DRG 543 ==
LOC: M ED 12:16 → EDBD 12:16 → M ED INP 15:31 → M MS5PR 18:19
PROVIDERS: ADMIT Internal Medicine; ATTEND Internal Medicine
DX: M84.350A Stress fracture, pelvis, initial encounter for fracture (principal); N17.9 Acute kidney failure, unspecified; G93.40 Encephalopathy, unspecified; M10.30 Gout due to renal impairment, unspecified site; G20 Parkinson's disease; E03.9 Hypothyroidism, unspecified; K59.00 Constipation, unspecified; N40.0 Benign prostatic hyperplasia without lower urinary tract symptoms; N18.9 Chronic kidney disease, unspecified; I12.9 Hypertensive chronic kidney disease with stage 1 through stage 4 chronic kidney disease, or unspecified chronic kidney disease; Z79.899 Other long term (current) drug therapy; K21.9 Gastro-esophageal reflux disease without esophagitis; Z88.8 Allergy status to other drugs, medicaments and biological substances

== ENCOUNTER 2020-09-14 02:44 | Emergency (ER) | payer MEDICARE ==
[~2020-09-14] VITALS: Ht 172.7 cm; Wt 84.5 kg
[~2020-09-14 02:44] MED LIST changes: +FOSA70TA3 PO; -LISI-542 PO; +LISI-898 PO; +PEPC1TAB5 PO; +RA S8.6T3 PO
[2020-09-14] MEDS ORDERED: OXYB5TAB10 PO (03:16)
[2020-09-14 03:37] LABS: BASO % 0.3 % (0.0-1.0); EOS # 0.2 10^3/uL (0.0-0.5); EOS % 3.3 % (0.0-3.0); HEMOGLOBIN 12.1 g/dl (13.5-17.5); LYMPH # 1.9 10^3/uL (1.5-5.0); LYMPH % 26.3 % (24.0-44.0); MEAN CORPUSCULAR HEMOGLOBIN 30.3 pg (27.0-33.0); MEAN CORPUSCULAR HGB CONC 32.7 g/dl (32.0-36.5); MEAN CORPUSCULAR VOLUME 92.5 fl (80.0-96.0); MONO # 0.5 10^3/uL (0.0-0.8); MONO % 7.2 % (2.0-8.0); NEUTROPHILS # 4.5 10^3/uL (1.5-8.5); NEUTROPHILS % 62.5 % (36.0-66.0); PLATELET COUNT, AUTOMATED 193 10^3/uL (150-450); WHITE BLOOD COUNT 7.2 10^3/uL (4.0-10.0)
[2020-09-14 04:07] LABS: CALCIUM LEVEL 8.7 MG/DL (8.8-10.2); CREATININE FOR GFR 2.02 MG/DL (0.70-1.30); GLOMERULAR FILTRATION RATE 33.3 (>35); POTASSIUM SERUM 4.4 MEQ/L (3.5-5.1)
[2020-09-14] MEDS ORDERED: ULTR50TA8 PO (07:08)
[2020-09-14] MEDS ORDERED: CARA1TAB6 PO (07:08)
--- NOTE | 2020-09-14 07:15 | REPVR ---
PROCEDURE INFORMATION: Exam: XR Left Humerus Exam date and time: 09/14/2020 5:56 AM Age: 89 years old Clinical indication: Other: Pain, atraumatic, eval for path FX TECHNIQUE: Imaging protocol: XR Left humerus. Views: 2 or more views. COMPARISON: No relevant prior studies available. FINDINGS: Bones/joints: No suspicious osseous lesions. No acute fractures. Soft tissues: The soft tissues appear unremarkable. IMPRESSION: No fractures or bone lesions identified. Electronically signed by: Della Sousa On 09/14/2020 07:15:42 AM
--- NOTE | 2020-09-14 07:15 | REPVR ---
PROCEDURE INFORMATION: Exam: US Duplex Left Upper Extremity Veins, Limited Exam date and time: 09/14/2020 6:14 AM Age: 89 years old Clinical indication: Pain; Arm, upper; Left; Additional info: Left upper ext pain, R/O dvt TECHNIQUE: Imaging protocol: Real-time Duplex ultrasound of the Left Upper Extremity with 2-D correa scale, color Doppler flow and spectral waveform analysis with image documentation. Limited exam focused on the left upper extremity veins. COMPARISON: No relevant prior studies available. FINDINGS: Left deep veins: Unremarkable. Axillary and brachial veins are patent throughout without thrombus. Normal Doppler waveforms. Normal compressibility and/or augmentation response. Visualized internal jugular and subclavian veins are patent. Left superficial veins: Unremarkable. Visualized cephalic and basilic veins are patent without thrombus. Soft tissues: Unremarkable. IMPRESSION: No evidence of deep vein thrombosis. Electronically signed by: eDlla Sousa On 09/14/2020 07:14:54 AM
[2020-09-14 07:30] VITALS: BP 161/93
--- NOTE | 2020-09-14 07:46 | ECGEPIP ---
[facility] - ED Test Date: 2020-09-14 Pat Name: DANETTE HANNAH Department: Room: - Gender: Male Medical Office Clerk: SIRI : 1930 Requested By: DANIKA Saldaña Order Number: [id number] Reading MD: Juan J Ng Measurements Intervals [place] Rate: 71 P: 27 PA: 150 QRS: 24 QRSD: 88 T: 34 QT: 370 QTc: 402 Interpretive Statements Normal sinus rhythm SIMILAR TO 08/12/17 Electronically Signed on 09-14-2020 7:46:03 EDT by Juan J Ng
== END 2020-09-14 07:36 | disposition home or self-care (01) ==
LOC: M ED 02:44
DX: M79.602 Pain in left arm (principal); G20 Parkinson's disease; R97.20 Elevated prostate specific antigen [PSA]; Z88.8 Allergy status to other drugs, medicaments and biological substances; Z79.899 Other long term (current) drug therapy